=== PATIENT | male | born 1985 | race Caucasian/White ===

== ENCOUNTER 2020-11-23 11:22 | Emergency (ER) | payer OTHER ==
[2020-11-23] MEDS ORDERED: KETOROLAC 15 MG/ML 1 ML VIAL IM STA (11:47)
--- NOTE | 2020-11-23 12:11 | XR ---
EXAMINATION TYPE: PA chest and left rib series, 5 views DATE OF EXAM: 11/23/2020 Comparison: None Clinical History: 35-year-old male pain after trip and fall injury Findings: Heart normal size. Aorta and pulmonary vasculature within normal limits. Some strandy atelectasis in the left lower lung. No consolidation or pleural effusion. No pneumothorax. Very subtle cortical irre gularity involving the left anterolateral sixth and seventh ribs on the oblique view. No displaced ri b fractures seen. Impression: Subtle cortical irregularity involving the left anterolateral sixth and seventh ribs on the oblique v iew. If there is point tenderness here, subtle nondisplaced rib fractures are not excluded. No acute cardiopulmonary process.
--- NOTE | 2020-11-23 12:17 | ED ---
Fall HPI - General Chief Complaint: Fall Stated Complaint: Fall, L side pain Time Seen by Provider: 11/23/20 11:35 Source: patient, RN notes reviewed Mode of arrival: ambulatory Limitations: no limitations - History of Present Illness Initial Comments: 35-year-old male presents emergency Department with chief complaint of left- sided rib pain. Patient states that he was playing softball states that he fell with his arm tucked in. Patient went of left-sided rib pain states it's worse with any movement and deep inspiration. No head injury no loss conscious no other complaints. - Related Data Previous Rx's Medication Instructions Recorded Ibuprofen [Motrin] 800 mg PO Q6HR #30 tab 11/23/20 Allergies Allergy/AdvReac Type Severity Reaction Status Date / Time promethazine Allergy Hallucinati Verified 11/23/20 11:33 ons Review of Systems ROS Statement: Those systems with pertinent positive or pertinent negative responses have been documented in the HPI. ROS Other: All systems not noted in ROS Statement are negative. General Exam Limitations: no limitations General appearance: alert, in no apparent distress Head exam: Present: atraumatic, normocephalic, normal inspection Neck exam: Present: normal inspection, full ROM. Absent: tenderness, meningismus, lymphadenopathy Respiratory exam: Present: normal lung sounds bilaterally, chest wall tenderness (Moderate left lateral posterior rib tenderness). Absent: respiratory distress, wheezes, rales, rhonchi, stridor Cardiovascular Exam: Present: regular rate, normal rhythm, normal heart sounds. Absent: systolic murmur, diastolic murmur, rubs, gallop, clicks GI/Abdominal exam: Present: soft, normal bowel sounds. Absent: distended, tenderness, guarding, rebound, rigid Course Vital Signs 11/23/20 11:30 Temperature 98.3 F Pulse Rate 60 Respiratory 18 Rate Blood Pressure 124/75 O2 Sat by Pulse 97 Oximetry Medical Decision Making - Medical Decision Making X-ray shows evidence of seventh rib fracture of the left no pneumothorax. Patient we discharged stable condition with ibuprofen. Disposition Clinical Impression: Fall, Left rib fracture Disposition: HOME SELF-CARE Condition: Stable Instructions (If sedation given, give patient instructions): Rib Fracture (ED) Additional Instructions: Please return to the Emergency Department if symptoms worsen or any other concerns. Prescriptions: Ibuprofen [Motrin] 800 mg PO Q6HR #30 tab Is patient prescribed a controlled substance at d/c from ED?: No Referrals: Nonstaff,Physician [Primary Care Provider] - 1-2 days Time of Disposition: 12:17
[2020-11-23 12:52] VITALS: BP 120/64; PULSE 76; RESP 16; TEMP 98
== END 2020-11-23 12:52 | disposition home or self-care (01) ==
LOC: EC 11:22
DX: S22.32XA Fracture of one rib, left side, initial encounter for closed fracture (principal); W18.30XA Fall on same level, unspecified, initial encounter; Y93.64 Activity, baseball
CPT/HCPCS: 71101; 99284; 96372; J1885

== ENCOUNTER 2021-12-01 14:15 | Inpatient (IN) | payer OTHER ==
[2021-12-01] MEDS ORDERED: SODIUM CHLORIDE 0.9% 1,000 ML IV STA (14:45)
--- NOTE | 2021-12-01 15:05 | XR ---
EXAMINATION TYPE: XR chest 2V DATE OF EXAM: 12/01/2021 COMPARISON: 11/23/2020 TECHNIQUE: PA and lateral views submitted. HISTORY: Chest pain FINDINGS: The lungs are clear and there is no pneumothorax, pleural effusion, or focal pneumonia. Heart size normal. No overt failure. Subtle fractures noted involving the lower lateral left rib cage as well se en by standard chest x-ray. IMPRESSION: 1. No acute process. Subtle recent rib fractures not as well seen by standard two view chest xray rel ative to rib series.
[2021-12-01 15:07] LABS: Basophils % (A) 0 %; Eosinophils % (A) 0 %; HCT 47.1 % (39.0-53.0); HGB 15.4 gm/dL (13.0-17.5); Lymphocytes # (A) 1.9 k/uL (1.0-4.8); Lymphocytes % (A) 27 %; MCH 30.8 pg (25.0-35.0); MCHC 32.7 g/dL (31.0-37.0); MCV 94.2 fL (80.0-100.0); Mean Platelet Volume 8.2; Monocytes # (A) 0.3 k/uL (0-1.0); Monocytes % (A) 4 %; Neutrophils # (A) 4.7 k/uL (1.3-7.7); Neutrophils % (A) 67 %; Platelet Count 186 k/uL (150-450); RDW 12.6 % (11.5-15.5)
[2021-12-01 15:14] LABS: Partial Thromboplastin Time 25.4 sec (22.0-30.0)
[2021-12-01 15:25] LABS: ALT 32 U/L (4-49); AST 42 U/L (17-59); African American GFR (CKD) >90 (>60 ml/min/1.73 sqM); Albumin 4.9 g/dL (3.5-5.0); Alkaline Phosphatase 56 U/L (38-126); Anion Gap 23 mmol/L; Blood Urea Nitrogen 9 mg/dL (9-20); Calcium 8.5 mg/dL (8.4-10.2); Carbon Dioxide 16 mmol/L (22-30); Chloride 105 mmol/L (98-107); Glucose 102 mg/dL (74-99); Lipase 223 U/L (23-300); Magnesium 1.9 mg/dL (1.6-2.3); Non-African American GFR(CKD) >90 (>60 ml/min/1.73 sqM); Potassium 4.2 mmol/L (3.5-5.1); Sodium 144 mmol/L (137-145); Total Bilirubin 0.5 mg/dL (0.2-1.3); Total Protein 7.7 g/dL (6.3-8.2)
[2021-12-01] MEDS ORDERED: THIAMINE 100 MG/ML 2 ML VIAL IM STA (15:36)
[2021-12-01] MEDS: LORazepam 2 MG/ML INJ IV PRN ×4 (15:58→22:45)
--- NOTE | 2021-12-01 16:02 | ED ---
General Adult HPI - General Chief complaint: Chest Pain Stated complaint: chest pain Time Seen by Provider: 12/01/21 14:45 Source: patient, RN notes reviewed, old records reviewed Mode of arrival: EMS Limitations: no limitations - History of Present Illness Initial comments: 36-year-old male history of alcohol abuse presenting from [place] with nate pected withdrawal seizure. Patient is a very heavy drinker. He last drank about 6 hours prior. He was being evaluated at [place] for rehabilitation when he had a syncopal versus seizure episode. He states he has history of previous alcohol withdrawal seizures. - Related Data Previous Rx's Medication Instructions Recorded Ibuprofen [Motrin] 800 mg PO Q6HR #30 tab 11/23/20 Allergies Allergy/AdvReac Type Severity Reaction Status Date / Time promethazine Allergy Hallucinati Verified 12/01/21 14:29 ons Review of Systems ROS Statement: Those systems with pertinent positive or pertinent negative responses have been documented in the HPI. ROS Other: All systems not noted in ROS Statement are negative. Past Medical History Past Medical History: Seizure Disorder Additional Past Medical History / Comment(s): paracarditis Past Surgical History: No Surgical Hx Reported Smoking Status: Current every day smoker Past Alcohol Use History: Daily, Heavy Past Drug Use History: Cocaine Course Vital Signs 12/01/21 12/01/21 12/01/21 14:23 15:05 16:00 Temperature 99.1 F Pulse Rate 119 H 108 H 108 H Respiratory 18 18 16 Rate Blood Pressure 147/111 126/92 125/106 O2 Sat by Pulse 96 97 97 Oximetry EKG Findings - EKG Comments: EKG Findings:: EKG: Sinus tachycardia incomplete right bundle-branch block, rate of 113, AK interval 168, QRS duration 112, QTC 383 Medical Decision Making - Medical Decision Making 36-year-old male with alcohol withdrawal seizure. Patient placed on ativan according to CIWA, laboratory studies obtained, CO2 of 60 likely related to seizure. Alcohol level [address] Cooney for alcohol withdrawal seizure and alcohol intoxication. - Lab Data Result diagrams: 12/01/21 14:45 12/01/21 14:45 Lab Results 12/01/21 12/01/21 12/01/21 Range/Units 14:45 14:45 14:45 WBC 7.0 (3.8-10.6) k/uL RBC 5.00 (4.30-5.90) m/uL Hgb 15.4 (13.0-17.5) gm/dL Hct 47.1 (39.0-53.0) % MCV 94.2 (80.0-100.0) fL MCH 30.8 (25.0-35.0) pg MCHC 32.7 (31.0-37.0) g/dL RDW 12.6 (11.5-15.5) % Plt Count 186 (150-450) k/uL MPV 8.2 Neutrophils % 67 % Lymphocytes % 27 % Monocytes % 4 % Eosinophils % 0 % Basophils % 0 % Neutrophils # 4.7 (1.3-7.7) k/uL Lymphocytes # 1.9 (1.0-4.8) k/uL Monocytes # 0.3 (0-1.0) k/uL Eosinophils # 0.0 (0-0.7) k/uL Basophils # 0.0 (0-0.2) k/uL PT 11.0 (9.0-12.0) sec INR 1.0 (<1.2) APTT 25.4 (22.0-30.0) sec Sodium 144 (137-145) mmol/L Potassium 4.2 (3.5-5.1) mmol/L Chloride 105 (98-107) mmol/L Carbon Dioxide 16 L (22-30) mmol/L Anion Gap 23 mmol/L BUN 9 (9-20) mg/dL Creatinine 0.80 (0.66-1.25) mg/dL Est GFR (CKD-EPI)AfAm >90 (>60 ml/min/1.73 sqM) Est GFR (CKD-EPI)NonAf >90 (>60 ml/min/1.73 sqM) Glucose 102 H (74-99) mg/dL Calcium 8.5 (8.4-10.2) mg/dL Magnesium 1.9 (1.6-2.3) mg/dL Total Bilirubin 0.5 (0.2-1.3) mg/dL AST 42 (17-59) U/L ALT 32 (4-49) U/L Alkaline Phosphatase 56 (38-126) U/L Troponin I (0.000-0.034) ng/mL Total Protein 7.7 (6.3-8.2) g/dL Albumin 4.9 (3.5-5.0) g/dL Lipase 223 (23-300) U/L Serum Alcohol mg/dL 12/01/21 12/01/21 Range/Units 14:45 15:53 WBC (3.8-10.6) k/uL RBC (4.30-5.90) m/uL Hgb (13.0-17.5) gm/dL Hct (39.0-53.0) % MCV (80.0-100.0) fL MCH (25.0-35.0) pg MCHC (31.0-37.0) g/dL RDW (11.5-15.5) % Plt Count (150-450) k/uL MPV Neutrophils % % Lymphocytes % % Monocytes % % Eosinophils % % Basophils % % Neutrophils # (1.3-7.7) k/uL Lymphocytes # (1.0-4.8) k/uL Monocytes # (0-1.0) k/uL Eosinophils # (0-0.7) k/uL Basophils # (0-0.2) k/uL PT (9.0-12.0) sec INR (<1.2) APTT (22.0-30.0) sec Sodium (137-145) mmol/L Potassium (3.5-5.1) mmol/L Chloride (98-107) mmol/L Carbon Dioxide (22-30) mmol/L Anion Gap mmol/L BUN (9-20) mg/dL Creatinine (0.66-1.25) mg/dL Est GFR (CKD-EPI)AfAm (>60 ml/min/1.73 sqM) Est GFR (CKD-EPI)NonAf (>60 ml/min/1.73 sqM) Glucose (74-99) mg/dL Calcium (8.4-10.2) mg/dL Magnesium (1.6-2.3) mg/dL Total Bilirubin (0.2-1.3) mg/dL AST (17-59) U/L ALT (4-49) U/L Alkaline Phosphatase (38-126) U/L Troponin I <0.012 (0.000-0.034) ng/mL Total Protein (6.3-8.2) g/dL Albumin (3.5-5.0) g/dL Lipase (23-300) U/L Serum Alcohol 374 H* mg/dL Disposition Clinical Impression: Chest pain, Alcohol abuse, Alcohol withdrawal seizure Disposition: ADMITTED IP TO THIS HOSP Condition: Stable Is patient prescribed a controlled substance at d/c from ED?: No Referrals: None,Stated [Primary Care Provider] - 1-2 days Time of Disposition: 16:12
[2021-12-01] MEDS ORDERED: NALOXONE 0.4 MG/ML 1 ML VIAL IV PRN (16:04)
[2021-12-01] MEDS: SODIUM CHLORIDE 0.9% 1,000 ML IV SCH (16:27)
[2021-12-01] MEDS: THIAMINE 100 MG TAB PO SCH (16:42)
[2021-12-01] MEDS: cloNIDine HCL 0.1 MG TAB PO SCH ×2 (17:27→21:57)
[2021-12-02] MEDS: LORazepam 2 MG/ML INJ IV PRN ×5 (05:00→21:39)
[2021-12-02] MEDS: SODIUM CHLORIDE 0.9% 1,000 ML IV SCH ×2 (06:32→16:44)
--- NOTE | 2021-12-02 07:32 | P.HPIM ---
History of Present Illness This is a pleasant 56 years old male with past medical history of seizure disorder, alcohol abuse, substance abuse with cocaine and smoker. Presents yesterday from [place] for suspected seizure, patient states that he has previous history of alcohol withdrawal seizures. Yesterday he went into [place] hoping to quit drinking alcohol because he still in me he start altered and no other specific reason, while he was there within 2 hours he developed shakiness and he dropped on the floor with urine incontinence but no b owel incontinence or tongue biting, he woke up in the ambulance. His last drink was about 6 hours prior to going to [facility]. He denies headache or dizziness, he says he has someWeakness in his left arm and leg which is improved now. His examination is nonfocal. He denies chest pain or dyspnea. No abdominal pain or vomiting or diarrhea. No urgency or dysuria. No fever. he denies smoking, no illicit drugs but he drinks about 24 beers a day. Patient also feel hopeless and hopeless but denies suicidal or homicidal ideation Of note the patient alcohol level was a still high when he came into the hospital at 374, and he confirms he did not drink any liquor or alcohol on the way to [place] to the hospital.This could be due to rapid drop in his alcohol level which prompted the seizure Vitals stable, patient is mildly tachycardic around 105 but he is a febrile Labs are unremarkable including CBC, INR, BMP Alcohol level was elevated on admission at 374 EKG showing sinus tachycardia [address]-T changes Chest x-ray: No acute process. Subtle fractures involving the left lateral left rib cage In the emergency room patient was started on normal saline, thiamine and CIWA protocol Neurologist has been consulted Review of Systems Review of systems CONSTITUTIONAL: No fever, no malaise, no fatigue. HEENT: No recent visual problems or hearing problems. Denied any sore throat. CARDIOVASCULAR: No orthopnea, PND, no palpitations, no syncope. PULMONARY: No shortness of breath, no cough, no hemoptysis. GASTROINTESTINAL: No diarrhea, no nausea, no vomiting, no abdominal pain. Normoactive bowel sounds. NEUROLOGICAL: No headaches, no weakness, no numbness. HEMATOLOGICAL: Denies any bleeding or petechiae. GENITOURINARY: Denies any burning micturition, frequency, or urgency. MUSCULOSKELETAL/RHEUMATOLOGICAL: Denies any joint pain, swelling, or any muscle pain. ENDOCRINE: Denies any polyuria or polydipsia. Past Medical History Past Medical History: Seizure Disorder Additional Past Medical History / Comment(s): paracarditis Past Surgical History: No Surgical Hx Reported Smoking Status: Current every day smoker Past Alcohol Use History: Daily, Heavy Past Drug Use History: Cocaine Medications and Allergies Home Medications Medication Instructions Recorded Confirmed Type No Known Home Medications 12/01/21 12/01/21 History Allergies Allergy/AdvReac Type Severity Reaction Status Date / Time promethazine Allergy Hallucinati Verified 12/01/21 17:48 ons Physical Exam Vitals: Vital Signs Temp Pulse Pulse Resp BP BP Pulse Ox 12/02/21 01:15 104 H 18 120/68 98 12/01/21 22:48 101 H 16 118/68 98 12/01/21 18:02 138 H 22 127/77 99 12/01/21 16:00 108 H 16 125/106 97 12/01/21 15:05 108 H 18 126/92 97 12/01/21 14:23 99.1 F 119 H 18 147/111 96 Intake and Output 12/01/21 12/01/21 12/02/21 14:59 22:59 06:59 Intake Total 480 Balance 480 Intake: Oral 480 Other: # Voids 2 Weight 86.183 kg GENERAL: The patient is alert and oriented x3, not in any acute distress. Well developed, well nourished. HEENT: Pupils are round and equally reacting to light. EOMI. No scleral icterus. No conjunctival pallor. Normocephalic, atraumatic. No pharyngeal erythema. No thyromegaly. CARDIOVASCULAR: S1 and S2 present. No murmurs, rubs, or gallops. PULMONARY: Chest is clear to auscultation, no wheezing or crackles. ABDOMEN: Soft, nontender, nondistended, normoactive bowel sounds. No palpable organomegaly. MUSCULOSKELETAL: No joint swelling or deformity. EXTREMITIES: No cyanosis, clubbing, or pedal edema. NEUROLOGICAL: Gross neurological examination did not reveal any focal deficits. SKIN: No rashes. no petechiae. Results CBC & Chem 7: 12/01/21 14:45 12/01/21 14:45 Labs: Abnormal Lab Results - Last 24 Hours (Table) 12/01/21 12/01/21 Range/Units 14:45 15:53 Carbon Dioxide 16 L (22-30) mmol/L Glucose 102 H (74-99) mg/dL Serum Alcohol 374 H* mg/dL Assessment and Plan Assessment: alcohol withdrawal seizureseizure possible cody's paralysis related to seizure Alcohol abuse and alcohol withdrawal depression, with no suicidal ideation History of substance abuse with cocaine Plan: This is a pleasant 56 years old male who presents with seizure and alcohol withdrawal Continue with CIWA protocol Thiamine Gentle hydration Seizure precaution Neurology consult psychiatric consult Labs and medication were reviewed.. Continue same treatment. Continue with symptomatic treatment. Resume home medication. Monitor lytes and vitals. DVT and GI prophylaxis. Further recommendations as per clinical course of the patient DVT prophylaxis: Subcutaneous heparin GI Prophylaxis: Pepcid Prognosis is guarded
[2021-12-02] MEDS: HEPARIN SODIUM,PORCINE/PF 5,000 UNIT/0.5 ML SYRINGE SQ SCH ×2 (08:08→21:39)
[2021-12-02] MEDS: THIAMINE 100 MG TAB PO SCH ×2 (08:09→16:36)
[2021-12-02] MEDS: cloNIDine HCL 0.1 MG TAB PO SCH ×3 (08:09→21:38)
[2021-12-02] MEDS ORDERED: FAMOTIDINE 20 MG/2 ML VIAL IV SCH (09:00)
--- NOTE | 2021-12-02 09:47 | HP ---
HISTORY AND PHYSICAL CHIEF COMPLAINT: Seizures. HISTORY OF PRESENT ILLNESS: This is a 36 year old gentleman with a past medical history of pancreatitis, history of alcohol issues, was admitted to [facility], but apparently, the patient had tonic clonic seizures, possibly withdrawal seizures, and the patient was taken to [facility] and was admitted for further evaluation. The patient is slightly jittery. The patient is mildly confused at this time. There is no history of any fever, rigors, or chills. PAST MEDICAL HISTORY: History of seizure disorder, pancreatitis, alcoholism. HOME MEDICATIONS: Ibuprofen. ALLERGIES: Phenothiazine. FAMILY HISTORY: No history of heart disease or strokes in the family. SOCIAL HISTORY: Alcohol abuse, cocaine, smoking. REVIEW OF SYSTEMS: 14-point review of systems negative except as mentioned earlier. PHYSICAL EXAMINATION: VITAL SIGNS: Pulse is 108, blood pressure , respirations 16. HEENT: Conjunctivae normal. NECK: No JVD. CARDIOVASCULAR: S1, S2 muffled. RESPIRATION: Breath sounds diminished at the bases. A few scattered rhonchi. ABDOMEN: Soft, nontender. LEGS: NERVOUS SYSTEM: Diffusely weak and tremors. SKIN: No ulcer. JOINTS: No active deforming arthropathy. LABORATORY DATA: CBC within normal limits. Other labs are noted. Alcohol is 374. ASSESSMENT: 1. Acute tonic-clonic seizures, withdrawal seizures. 2. History of seizure disorder. 3. History of EtOH. 4. History of pancreatitis. 5. Polysubstance abuse. RECOMMENDATION AND DISCUSSION: This 36-year-old gentleman presented with multiple complex medical issues. We will monitor the patient closely. I would recommend Ativan protocol, CIWA protocol. Otherwise, closely follow with Neurology, neuro checks, seizure precautions, alcohol cessation advice. We will initiate clonidine. Prognosis guarded because of multiple complex medical issues. Further recommendations to follow. See orders for further details. MMODL / IJN: [id number] /
[2021-12-02 10:47] LABS: Basophils # (A) 0.05 X 10*3/uL (0.00-0.10); Basophils % (A) 0.7 %; Eosinophils # (A) 0.07 X 10*3/uL (0.04-0.35); HCT 40.2 % (39.6-50.0); HGB 13.6 g/dL (13.0-17.0); Immature Grans, Automated 0.3 %; Lymphocytes # (A) 1.79 X 10*3/uL (0.90-5.00); Lymphocytes % (A) 25.5 %; MCH 30.9 pg (27.0-32.0); MCHC 33.8 g/dL (32.0-37.0); MCV 91.4 fL (80.0-97.0); Mean Platelet Volume 10.8 fL (9.5-12.2); Monocytes # (A) 0.46 X 10*3/uL (0.20-1.00); Monocytes % (A) 6.6 %; NRBC Per 100 WBC 0 /100 WBCS (0.0-0.0); Neutrophils # (A) 4.63 X 10*3/uL (1.80-7.70); Neutrophils % (A) 65.9 %; Platelet Count 147 X 10*3/uL (140-440); WBC 7.02 X 10*3/uL (4.50-10.00)
[2021-12-02 11:10] LABS: African American GFR (CKD) 128.7 (60.0-200.0); Albumin 4.1 g/dL (3.8-4.9); Albumin/Globulin Ratio 1.78 (1.60-3.17); Anion Gap 9.4 mmol/L (10.00-18.00); Blood Urea Nitrogen 9.9 mg/dL (9.0-27.0); Calcium 8.9 mg/dL (8.7-10.3); Carbon Dioxide 24.6 mmol/L (20.0-27.5); Globulin 2.3 g/dL (1.6-3.3); Potassium 4.2 mmol/L (3.5-5.5); Total Bilirubin 0.8 mg/dL (0.30-1.20); Total Protein 6.4 g/dL (6.2-8.2)
--- NOTE | 2021-12-02 12:51 | CT ---
EXAMINATION TYPE: CT brain wo con DATE OF EXAM: 12/02/2021 COMPARISON: None. HISTORY: Seizure. CT DLP: 1178.4 mGycm. Automated Exposure Control for Dose Reduction was Utilized. TECHNIQUE: CT scan of the head is performed without contrast. FINDINGS: There is no acute intracranial hemorrhage, mass effect, or midline shift identified. The ventricles and sulci are within normal limits in size. Galdamez-white matter differentiation is maintai robbi. The globes are intact and the visualized sinuses are clear. IMPRESSION: Unremarkable study.
[2021-12-02] MEDS ORDERED: hydrOXYzine pamoate 25 MG CAP PO PRN (13:32)
--- NOTE | 2021-12-02 13:39 | P.CN ---
Psychiatric Consult - . 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 He has 1 kid. REASON FOR REFERRAL: Psychiatry was consulted for depression HISTORY OF PRESENT ILLNESS: The patient presented to the hospital yesterday from [place]. Patient apparently has a history of severe alcohol abuse. Patient was seen today for psychiatric consultation for depression. Patient currently has a history of withdrawal seizures. His blood alcohol level was 374 on admission. Patient was seen today laying in his bed eating his lunch. He was agreeable to speak to newspaper writer today. He has a soft constricted tone of voice and affect. He states that he is feeling mainly anxious at this time and having some withdrawal symptoms including shakes and also racing heart. He claims that he does have a history of cocaine and alcohol withdrawal and also has had seizures from stopping alcohol 2 times in the past. He states that he was at [place] and apparently had a seizure there before being brought in by EMS to the hospital. He states that he remembers "falling down" last. He states that his last drink was about 24 hours ago. He states that he drinks around 24 cans of beer a day plus some liquor. He states that this has been going on for about 2 years now. He states that his mood is "a bit better" since being in the hospital however relays that it is most likely related to drinking alcohol when he feels depressed. Denying any paranoia, states that his sleep and appetite have been poor.. At this time patient denies any suicidal or homical ideations, intent or plan. Patient denies any auditory, visual hallucinations and denies any paranoia or delusions. Patients admits to using alcohol only, denies any c igarette use. PAST PSYCHIATRIC HISTORY: Patient has a a history of anxiety and alcohol dependence. Patient denies being on any psychiatric medications currently however states that he tried Zoloft when he was younger for anxiety however that did not help him. Patient denies any previous psychiatric hospitalizations. Patient denies any psychiatric outpatient follow-up. Patient denies any history of suicide attempts in the past. Past Medical History: Seizure Disorder Additional Past Medical History / Comment(s): paracarditis ALLERGIES: as per EMR. CHEMICAL DEPENDENCY HISTORY: as per HPI. FAMILY PSYCHIATRIC/SUBSTANCE USE HISTORY: denies SOCIAL HISTORY: Patient was born and raised in [facility]. He states that he completed high school and did some college. He states that he went to group home several years back for destruction of property. He states that he does not have any DUIs on his record. He has one child. 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 He is unemployed. MENTAL STATUS EXAM: General Appearance: Patient appears to have a spann, some tattoos, stated age is alert, directable, and cooperative. Patient appears to have fair hygiene and grooming wearing hospital gown with poor eye contact. Behavior: Patient is calmly lying in bed without any agitated behavior. Speech: Patient's speech is fluent and nonpressured. Constricted, monotone. Mood/Affect: Patient reports their mood is "only when I drink", affect is congruent and constricted Suicidality/Homicidality: Patient denies having any suicidal or homicidal ideation intent or plan. Perceptions: Patient denies any visual hallucinations and denies any auditory hallucinations Though content/process: There is no evidence of any delusional thought content and thought process is linear and goal-directed. Memory and concentration: AOX3, grossly intact for the purposes of this session. 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 -Would recommend the following medication changes/additions: Patient is agreeable to start naltrexone 50 mg daily for cravings of alcohol, Librium 25 mg 3 times a day for alcohol cravings scheduled, this is to be tapered down. Trazodone 50 mg daily at bedtime for insomnia/mood. Vistaril 25 mg 3 times a day when necessary for anxiety. -CIWA protocol with PRN Ativan for alcohol withdrawal. Continue to monitor vital signs. -outreach and education social worker to provide patient with outpatient mental health/psychiatry resources for appropriate follow up upon discharge -Cafe Attendant spoke with patient about substance abuse and the harmful effects on medical and mental health, patient verbally understood and agreed. -Patient states that he wants to return back to [place] once he is discharged from the hospital. -Communicated plan to patient's nurse -Will continue to follow along -Please contact with any questions.
--- NOTE | 2021-12-02 13:43 | P.CNNES ---
History of Present Illness Consult date: 12/02/21 Requesting physician: Cyrus Torres Reason for Consult: Alcohol withdrawal seizure History of Present Illness: Patient is a 36-year-old male came to the hospital by ambulance yesterday at 2:15 PM for a seizure. As per EMS flow sheet, when they arrived at [facility], found patient supine on the floor unresponsive with his hands in the air. Per staff he was checking into rehab when he stated that he was having chest pain. He then passed out and went into the floor from his chair. He has a history of seizure.. During moving to the ambulance, his arms were straight out in front of him and he was still unresponsive in the truck. During transport, patient woke up and became combative and was repeating questions. Patient's vitals were blood pressure 146/107, pulse rate 97 respiration 18 and saturation 97% blood glucose 120 and temperature 99.7. Patient's blood test shows normal CBC, PT/PTT, normal CMP. Troponin negative. Blood alcohol level was 374. Chest x-ray showed no acute process. EKG shows sinus tachycardia. Possible left atrial enlargement. Patient was seen in 477. Patient tells me that he had a seizure 2 years ago, which was also related to alcohol. He states that he has been drinking since age 22. He would drink 1 pint of vodka and 12 beers a day almost daily. In the last 5 years he has been drinking even more heavily, drinking about of pint to fifth of vodka a day and about a case of beer (24). Patient says that he lives with his sister, has 1 child. He denies any tobacco alcohol drugs, sometimes uses marijuana. He states that he was in the middle of check in at [place], when he just fell out and woke up in the ambulance. Denies any tongue bite although he did lose control of urine. Review of Systems All review of systems negative except pertinent positives and negatives mentioned in HPI. Denies any abdominal pain nausea vomiting diarrhea. No visual problems. No fever or chills. Past Medical History Past Medical History: Seizure Disorder Additional Past Medical History / Comment(s): paracarditis Past Surgical History: No Surgical Hx Reported Smoking Status: Current every day smoker Past Alcohol Use History: Daily, Heavy Past Drug Use History: Cocaine - Past Family History Mother Family Medical History: Hypertension Father Family Medical History: Hyperlipidemia Medications and Allergies Home Medications Medication Instructions Recorded Confirmed Type No Known Home Medications 12/01/21 12/01/21 History Allergies Allergy/AdvReac Type Severity Reaction Status Date / Time promethazine Allergy Hallucinati Verified 12/01/21 17:48 ons Physical Examination - Vital Signs Vital Signs: Vital Signs Temp Pulse Pulse Resp BP BP Pulse Ox 12/02/21 08:00 98.4 F 80 146/91 99 12/02/21 01:15 104 H 18 120/68 98 12/01/21 22:48 101 H 16 118/68 98 12/01/21 18:02 138 H 22 127/77 99 12/01/21 16:00 108 H 16 125/106 97 12/01/21 15:05 108 H 18 126/92 97 12/01/21 14:23 99.1 F 119 H 18 147/111 96 Intake and Output 12/01/21 12/02/21 12/02/21 22:59 06:59 14:59 Intake Total 480 Balance 480 Intake: Oral 480 Other: # Voids 2 Patient is a young male, in no acute distress. He has a flat affect. Patient is alert awake oriented to time place and person. Speech and language functions are normal. Patient can name and repeat very well. No aphasia or dysarthria. Attention, concentration and fund of knowledge is adequate. On cranial nerve examination, pupils are equal, round and reacting to light, visual owusu are full on confrontation, with no neglect on double simultaneous stimulation. Extraocular muscles are intact with no nystagmus. Face is symmetr ic, tongue protrudes to the midline. Palatal elevation and sensation normal, hearing and shoulder shrug normal, facial sensation normal. On muscle strength testing, there is no pronator drift and the strength is normal in arms and legs distally and proximally. Deep tendon reflexes are symmetric, hypoactive all over, and plantars downgoing. Sensory to touch is equal with no neglect on double simultaneous stimulation. Cerebellar function showed no ataxia for [id number] testing. No dys diadochokinesia. No ataxia for [id number] testing on either side. Tone and bulk of muscles normal. Gait deferred.. On general examination, there is no carotid bruit or murmur, S1-S2 audible. Ch est is clear on consultation. Abdomen is soft nontender. No organomegaly, bowel sounds present. Peripheral pulses are present. No edema. Results - Laboratory Findings CBC and BMP: 12/02/21 07:19 12/02/21 07:19 Abnormal Lab Findings: Abnormal Labs 12/01/21 12/01/21 14:45 15:53 Carbon Dioxide 16 L Glucose 102 H Serum Alcohol 374 H* Assessment and Plan Assessment: * Seizure, likely due to acute alcohol intoxication. Patient has history of seizure 2 years ago, which was also related to alcoholism. * Chronic heavy alcohol abuse * Tobacco use Plan: * Patient's seizure is provoked due to alcohol intoxication. No need for EEG. * We will check CT had rule out any subdural hematoma. * Watch for DTs. * Continue thiamine, folate, multivitamins. * Patient counseled about abstinence from alcoholism and tobacco use. * Patient informed of [place] state law of no driving unless seizure free for 6 months, climbing ladders, operating dangerous machinery or unsupervised swimming. * No other workup indicated, if CT head comes back normal. * Thank you for the consult. CT head normal. I personally reviewed CT head agree with the findings.
[2021-12-02 14:06] LABS: Amphetamine Screen,Urine Not Detected (NotDetected); Barbiturate Screen,Urine Not Detected (NotDetected); Benzodiazepines Screen,Urine Detected (NotDetected); Cocaine Screen,Urine Not Detected (NotDetected); Methadone Screen, Urine Not Detected (NotDetected); Opiate Screen,Urine Not Detected (NotDetected); Oxycodone Screen, Urine Not Detected (NotDetected); Phencyclidine Screen,Urine Not Detected (NotDetected); Tricyclic Antidepressant,Urine Not Detected (NotDetected); Urn Cannabinoid Scrn Not Detected (NotDetected)
[2021-12-02] MEDS: NALTREXONE HCL 50 MG TAB PO SCH (15:52)
[2021-12-02] MEDS: chlordiazePOXIDE 25 MG CAP PO SCH ×2 (15:52→21:38)
[2021-12-02] MEDS: NICOTINE 14MG/24HR PATCH TRANSDERM SCH (17:51)
[2021-12-02] MEDS: FAMOTIDINE 20 MG TAB PO SCH (21:38)
[2021-12-02] MEDS: traZODone HCL 50 MG TAB PO SCH (21:39)
[2021-12-03] MEDS: LORazepam 2 MG/ML INJ IV PRN ×4 (03:04→21:02)
[2021-12-03] MEDS: NALTREXONE HCL 50 MG TAB PO SCH (08:29)
[2021-12-03] MEDS: THIAMINE 100 MG TAB PO SCH ×2 (08:29→17:10)
[2021-12-03] MEDS: chlordiazePOXIDE 25 MG CAP PO SCH (08:30)
[2021-12-03] MEDS: FAMOTIDINE 20 MG TAB PO SCH ×2 (08:30→21:19)
[2021-12-03] MEDS: HEPARIN SODIUM,PORCINE/PF 5,000 UNIT/0.5 ML SYRINGE SQ SCH ×2 (08:30→21:19)
[2021-12-03] MEDS: cloNIDine HCL 0.1 MG TAB PO SCH ×3 (08:30→21:19)
[2021-12-03] MEDS: NICOTINE 14MG/24HR PATCH TRANSDERM SCH (08:31)
[2021-12-03] MEDS: SODIUM CHLORIDE 0.9% 1,000 ML IV SCH ×2 (08:31→19:25)
--- NOTE | 2021-12-03 09:12 | PN ---
PROGRESS NOTE SUBJECTIVE: This 36-year-old gentleman admitted with significant alcohol intoxication is being closely monitored. At this time, the patient is seen by Neurology and as well as Psychiatry also. No chest pain. No palpitations, but is still tremulous. The patient is on CIWA protocol. OBJECTIVE: VITAL SIGNS: Pulse is 102, blood pressure 142/80, respirations 18. HEENT: Conjunctivae are normal. NECK: No jugular venous distention. CARDIOVASCULAR: S1 and S2 muffled. RESPIRATORY: Breath sounds diminished at the bases. ABDOMEN: Soft. NERVOUS SYSTEM: Diffuse tremors present. LABORATORY DATA: Reviewed. CT of the brain is personally reviewed by me, showed it was unremarkable. ASSESSMENT: 1. Acute tonic-clonic seizures, possibly alcohol withdrawal seizures. 2. Delirium tremens. 3. History of seizure disorder. 4. History of EtOH. 5. History of pancreatitis. 6. Polysubstance abuse. RECOMMENDATIONS: Recommend to continue current . Continue CIWA protocol. Prognosis guarded. Repeat labs. Closely follow with Neurology. Further recommendations to follow. MMODL / IJN: [id number] / MTDD
--- NOTE | 2021-12-03 13:57 | P.PN ---
Progress Note - Text Progress Note Date: 12/03/21 Interval History: Patient was seen today for psychiatric follow-up regarding patient's depression and anxiety, alcohol use. Patient's mother states that patient's ciwa scores are still elevated, he also complained to her seeing "spiders" in the shower earlier today. Patient was seen lying in bed today and was agreeable to speak to content writer. He continues to appear fairly constricted in his affect and states that he is still feeling mildly anxious. He claims that he was able to sleep better last night with the trazodone however did have some awakenings. He once remained with same dose of trazodone. He continues to complain of withdrawal symptoms including mild tremors and anxiety and also visual hallucinations also possibly auditory hallucinations. He claims that he is still actively trying to get into [facility] or [facility] for rehab however states that he does not have a bed at this time. He remains focused on getting help for his alcohol use. He did express anxiety about being discharged too early and not having a place to go. At this time patient denies any suicidal or homical ideations, intent or plan. Patient denies any auditory, visual hallucinations and denies any paranoia or delusions. Patient denies any side effects from the medications and has been compliant with meds. Mental Status Exam: General Appearance: Patient appears to have a spann, some tattoos, stated age is alert, directable, and cooperative. Patient appears to have fair hygiene and grooming wearing hospital gown with improving eye contact. Behavior: Patient is calmly lying in bed without any agitated behavior. Speech: Patient's speech is fluent and nonpressured. Constricted, monotone. Mood/Affect: Patient reports their mood is "a bit better but still anxious", affect is congruent and constricted Suicidality/Homicidality: Patient denies having any suicidal or homicidal ideation intent or plan. Perceptions: Patient claims that he is having both visual and auditory hallucinations related to his alcohol withdrawal. Though content/process: There is no evidence of any delusional thought content and thought process is linear and goal-directed. Focused on remaining sober and discharge planning. 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 -Would recommend the following medication changes/additions: naltrexone 50 mg daily for cravings of alcohol, increase Librium 20 mg 4 times a day for alcohol cravings scheduled, this is to be tapered down. Trazodone 50 mg daily at bedtime for insomnia/mood. Vistaril 25 mg 3 times a day when necessary for anxiety. -CIWA protocol with PRN Ativan for alcohol withdrawal. Continue to monitor vital signs. -fiber optic assembly worker to provide patient with outpatient mental health/psychiatry resources for appropriate follow up upon discharge -Healthcare Consultant spoke with patient about substance abuse and the harmful effects on medical and mental health, patient verbally understood and agreed. -Patient states that he wants to return back to [place] once he is discharged from the hospital. Patient is at very high risk for relapse if he is not directly discharged to a safe enviornment such as rehab. -Spoke with RN and pillowcase cleaner about pts condition and need for more assistance and coordiantion with discharge planning hopefully directly to rehab due to him being high risk. -at this time psychiatry will sign off. -Please contact with any questions.
[2021-12-03 14:12] VITALS: BMI 25.7
[2021-12-03] MEDS: NICOTINE 21MG/24HR PATCH TRANSDERM SCH (14:13)
[2021-12-03] MEDS: NICOTINE GUM (POLACRILEX) 2 MG GUM BUCCAL PRN ×2 (17:10→23:01)
[2021-12-03 21:14] VITALS: RESP 18
[2021-12-03] MEDS: traZODone HCL 50 MG TAB PO SCH (21:19)
[2021-12-04 03:02] VITALS: BP 144/91; PULSE 65; TEMP 98
[2021-12-04] MEDS: LORazepam 2 MG/ML INJ IV PRN (05:59)
--- NOTE | 2021-12-04 06:29 | PN ---
PROGRESS NOTE SUBJECTIVE: This is a 36-year-old gentleman who was admitted with alcohol withdrawal seizures and significant alcoholism, is closely monitored. No chest pain, no palpitations, no significant tremors. PHYSICAL EXAMINATION: VITAL SIGNS: Pulse 79, blood pressure 120/80, respirations 19. HEENT: Conjunctivae normal. NECK: No jugular venous distention CARDIOVASCULAR: S1, S2 muffled. RESPIRATIONS: Diminished at the bases. ABDOMEN: Soft. NERVOUS SYSTEM: Mild diffuse tremors present. LABS: CMP, CBC noted. ASSESSMENT: 1. Acute tonic-clonic seizures, possibly alcohol withdrawal seizures. 2. Delirium tremens, acute. 3. History of seizure disorder. 4. History of EtOH. 5. History of pancreatitis. 6. Polysubstance abuse. RECOMMENDATIONS: Recommend to continue current medications, symptomatic treatment. Otherwise, I would recommend continue with CIWA protocol. Closely follow with Neurology. See orders for further details. Further recommendations to follow. Prognosis guarded. MMODL / IJN: [id number] /
[2021-12-04] MEDS: THIAMINE 100 MG TAB PO SCH (07:49)
[2021-12-04] MEDS: cloNIDine HCL 0.1 MG TAB PO SCH (07:49)
[2021-12-04] MEDS: NALTREXONE HCL 50 MG TAB PO SCH (07:49)
[2021-12-04] MEDS: NICOTINE 21MG/24HR PATCH TRANSDERM SCH (07:49)
[2021-12-04] MEDS: FAMOTIDINE 20 MG TAB PO SCH (07:49)
[2021-12-04] MEDS: HEPARIN SODIUM,PORCINE/PF 5,000 UNIT/0.5 ML SYRINGE SQ SCH (07:50)
--- NOTE | 2021-12-04 09:20 | P.PN ---
Subjective Progress Note Date: 12/03/21 Patient was seen for a follow-up. Patient is laying comfortably in bed. Patient denies any further seizures. No headache, no dizziness. Denies any focal symptoms. Patient wants to go back to [facility]. Objective - Vital Signs Vital signs: Vital Signs Temp 97.9 F 12/03/21 14:00 Pulse 79 12/03/21 14:00 Resp 15 12/03/21 14:00 BP 126/80 12/03/21 14:00 Pulse Ox 98 12/03/21 14:00 FiO2 Intake & Output 12/02/21 12/03/21 12/03/21 18:59 06:59 18:59 Intake Total 900 236 Balance 900 236 Weight 86.183 kg 86.183 kg Intake: Intake, IV Titration 900 Amount Sodium Chloride 0.9% 1, 900 000 ml @ 75 mls/hr IV . [id number] RITA Rx#:[id number] Oral 236 Other: # Voids 4 2 - Exam Patient's mental status, speech and language functions are normal. Muscle strength is normal. Cranial nerves normal. No ataxia. No significant tremors of outstretched hands. - Labs CBC & Chem 7: 12/02/21 07:19 12/02/21 07:19 Assessment and Plan Assessment: * Seizure, likely due to acute alcohol intoxication. Patient has history of seizure 2 years ago, which was also related to alcoholism. * Chronic heavy alcohol abuse * Tobacco use Plan: * Patient's seizure is provoked due to alcohol intoxication. No need for EEG. * CT head normal. I personally reviewed CT head agree with the findings. * Watch for DTs. Patient clinically much improved. * Continue thiamine, folate, multivitamins. * Patient counseled about abstinence from alcoholism and tobacco use. * Patient informed of [place] state law of no driving unless seizure free for 6 months, climbing ladders, operating dangerous machinery or unsupervised swimming. * Neurologically clear.
--- NOTE | 2021-12-05 00:20 | P.PN ---
Subjective Progress Note Date: 12/04/21 Patient was seen for a follow-up. Patient is laying comfortably in bed. Patient denies any further seizures. No headache, no dizziness. Denies any focal symptoms. Patient wants to go back to [facility]. Patient being discharged today. Objective - Vital Signs Vital signs: Vital Signs Temp 98.0 F 12/04/21 01:50 Pulse 65 12/04/21 01:50 Resp 18 12/03/21 19:13 BP 144/91 12/04/21 01:50 Pulse Ox 98 12/04/21 01:50 FiO2 Intake & Output 12/03/21 12/04/21 12/04/21 18:59 06:59 18:59 Intake Total 236 Balance 236 Weight 86.183 kg Intake: Oral 236 Other: # Voids 2 - Exam Patient's mental status, speech and language functions are normal. Muscle strength is normal. Cranial nerves normal. No ataxia. Mild fine tremors of outstretched hands. - Labs CBC & Chem 7: 12/02/21 07:19 12/02/21 07:19 Assessment and Plan Assessment: * Seizure, likely due to acute alcohol intoxication. Patient has history of seizure 2 years ago, which was also related to alcoholism. * Chronic heavy alcohol abuse * Tobacco use Plan: * Patient's seizure is provoked due to alcohol intoxication. No need for EEG. * CT head normal. I personally reviewed CT head agree with the findings. * Watch for DTs. Patient clinically much improved. * Continue thiamine, folate, multivitamins. * Patient counseled about abstinence from alcoholism and tobacco use. * Patient informed of [place] state law of no driving unless seizure free for 6 months, climbing ladders, operating dangerous machinery or unsupervised swimming. * Neurologically clear. We will sign off.
--- NOTE | 2021-12-05 01:56 | DS ---
DISCHARGE SUMMARY FINAL DIAGNOSES: 1. Acute alcoholic seizures. 2. Acute delirium tremens. 3. History of EtOH. 4. History of pancreatitis. DISCHARGE DISPOSITION: The patient will be discharged in stable condition. Guarded prognosis. HISTORY OF PRESENT ILLNESS: This 36-year-old gentleman was admitted with significant alcoholism and associated seizure, treated symptomatically. Dr. Engel saw the patient, Neurology. No chest pain, no palpitations. No fever. PHYSICAL EXAMINATION: VITAL SIGNS: Weight ntd CARDIOVASCULAR: S1, S2 muffled. ABDOMEN: Soft. NERVOUS SYSTEM: No focal deficits. DISCHARGE DISPOSITION: DISCHARGE MEDICATIONS: The patient will be recommended to continue with short course of clonidine, Librium as well as multivitamins and to follow up with [facility]. Follow up with primary physician for continued followup of the above-mentioned medical issues including neurologist as an outpatient. Discussed with the patient, he understands and agrees. Prognosis guarded. MMLAURAL / MAUREEN: [id number] / MTDD
== END 2021-12-04 13:10 | DRG 897 ==
LOC: EC 14:15 → 4SSUR 16:04
PROVIDERS: ADMIT Hospitalist; ATTEND Hospitalist
DX: F10.231 Alcohol dependence with withdrawal delirium (principal); Y90.8 Blood alcohol level of 240 mg/100 ml or more; F10.229 Alcohol dependence with intoxication, unspecified; G40.409 Other generalized epilepsy and epileptic syndromes, not intractable, without status epilepticus; G83.84 Todd's paralysis (postepileptic); F17.210 Nicotine dependence, cigarettes, uncomplicated; Z65.3 Problems related to other legal circumstances; Z56.0 Unemployment, unspecified; I45.10 Unspecified right bundle-branch block; Z28.21 Immunization not carried out because of patient refusal; F10.24 Alcohol dependence with alcohol-induced mood disorder; F14.10 Cocaine abuse, uncomplicated; F41.9 Anxiety disorder, unspecified; Z82.49 Family history of ischemic heart disease and other diseases of the circulatory system; Z86.19 Personal history of other infectious and parasitic diseases
CPT/HCPCS: 36415; 70450; 71046; 80053; 80306; 80320; 83690; 83735; 84484; 85025; 85610; 85730; 93005; 96361; 96374; 99285

== ENCOUNTER 2022-08-27 21:43 | Observation (INO) | payer OTHER ==
[2022-08-27 21:55] LABS: Glucose,Whole Blood 119 mg/dL (70-110)
[2022-08-27] MEDS ORDERED: SODIUM CHLORIDE 0.9% 1,000 ML IV ONE ×2 (21:57)
[2022-08-27 22:13] LABS: Basophils # (A) 0.1 k/uL (0-0.2); Basophils % (A) 1 %; Eosinophils % (A) 0 %; HCT 50.4 % (39.0-53.0); HGB 17.4 gm/dL (13.0-17.5); Lymphocytes % (A) 19 %; MCH 30.5 pg (25.0-35.0); MCHC 34.6 g/dL (31.0-37.0); MCV 88.3 fL (80.0-100.0); Mean Platelet Volume 7.9; Monocytes # (A) 0.6 k/uL (0-1.0); Monocytes % (A) 4 %; Neutrophils # (A) 11.5 k/uL (1.3-7.7); Neutrophils % (A) 75 %; Platelet Count 314 k/uL (150-450); RBC 5.71 m/uL (4.30-5.90); RDW 12.1 % (11.5-15.5); WBC 15.3 k/uL (3.8-10.6)
[2022-08-27 22:28] LABS: INR 0.9 (<1.2); Partial Thromboplastin Time 22.2 sec (22.0-30.0); Prothrombin Time 10.1 sec (9.0-12.0)
[2022-08-27 22:35] LABS: ALT 41 U/L (4-49); AST 56 U/L (17-59); African American GFR (CKD) >90 (>60 ml/min/1.73 sqM); Albumin 5.2 g/dL (3.5-5.0); Alkaline Phosphatase 68 U/L (38-126); Anion Gap 25 mmol/L; Blood Urea Nitrogen 12 mg/dL (9-20); Calcium 8.9 mg/dL (8.4-10.2); Carbon Dioxide 19 mmol/L (22-30); Chloride 93 mmol/L (98-107); Creatine Kinase 262 U/L (55-170); Glucose 139 mg/dL (74-99); Non-African American GFR(CKD) >90 (>60 ml/min/1.73 sqM); Potassium 4.5 mmol/L (3.5-5.1); Sodium 137 mmol/L (137-145); Total Protein 8.9 g/dL (6.3-8.2)
[2022-08-27 22:48] LABS: Appearance,Urine Clear (Clear); Bilirubin,Urine Negative (Negative); Blood,Urine Small (Negative); Color,Urine Light Yellow; Glucose,Urine (UA) Negative (Negative); Ketones,Urine 2+ (Negative); Leukocyte Esterase,Urine Negative (Negative); Mucus,Urine Rare /hpf; Nitrite,Urine Negative (Negative); PH, Urine 5.5 (5.0-8.0); Protein,Urine 2+ (Negative); Specific Gravity,Urine 1.008 (1.001-1.035); Squamous Epithelial Cell,Urine <1 /hpf (0-4); Urobilinogen,Urine <2.0 mg/dL (<2.0); WBC,Urine 1 /hpf (0-5)
[2022-08-27 22:53] LABS: Alcohol 361 mg/dL
[2022-08-27 22:58] LABS: Amphetamine Screen,Urine Not Detected (NotDetected); Barbiturate Screen,Urine Not Detected (NotDetected); Benzodiazepines Screen,Urine Not Detected (NotDetected); Cocaine Screen,Urine Not Detected (NotDetected); Methadone Screen, Urine Not Detected (NotDetected); Opiate Screen,Urine Not Detected (NotDetected); Oxycodone Screen, Urine Not Detected (NotDetected); Phencyclidine Screen,Urine Not Detected (NotDetected); Tricyclic Antidepressant,Urine Not Detected (NotDetected); Urn Cannabinoid Scrn Not Detected (NotDetected)
--- NOTE | 2022-08-27 23:13 | ED ---
Altered Mental Status HPI - General Chief Complaint: Altered Mental Status Stated Complaint: ETOH Time Seen by Provider: 08/27/22 21:50 Source: EMS, RN notes reviewed Mode of arrival: EMS Limitations: no limitations - History of Present Illness Initial Comments: 37-year-old male past history of seizure disorder, daily alcohol abuse and previous cocaine use who presents to the emergency department from [facility]. They state that he was checking into [facility] today when he went unresponsive. They report that he drinks a pint to a liter daily and has a seizure disorder. He denies taking his meds today. The patient's became unresponsive and appeared like he was having an absence seizure. He was given 2 mg of Narcan IM, 0.2 mg of Catapres by mouth and 2 mg of Ativan IM. Patient was transported to the hospital. Patient arrives and admits to seizure disorder. No traumas were noted during the episode. He denies using any other drugs prior to [facility] admission. History is limited because of the patient's current mental status - Related Data Previous Rx's Medication Instructions Recorded Thiamine [Vitamin B-1] 100 mg PO DAILY #30 tab 08/31/22 Allergies Allergy/AdvReac Type Severity Reaction Status Date / Time promethazine Allergy Hallucinati Verified 08/28/22 11:06 ons Review of Systems ROS Statement: Those systems with pertinent positive or pertinent negative responses have been documented in the HPI. ROS Other: All systems not noted in ROS Statement are negative. Past Medical History Past Medical History: Seizure Disorder Additional Past Medical History / Comment(s): paracarditis History of Any Multi-Drug Resistant Organisms: None Reported Past Surgical History: No Surgical Hx Reported Additional Past Surgical History / Comment(s): Oral surgery, EGD Past Anesthesia/Blood Transfusion Reactions: No Reported Reaction Past Psychological History: No Psychological Hx Reported Smoking Status: Current every day smoker Past Alcohol Use History: Daily, Heavy Past Drug Use History: Cocaine - Past Family History Mother Family Medical History: Hypertension Father Family Medical History: Hyperlipidemia General Exam Limitations: altered mental status General appearance: lethargic Head exam: Present: atraumatic, normocephalic, normal inspection Eye exam: Present: normal appearance, PERRL, EOMI. Absent: scleral icterus, conjunctival injection, periorbital swelling ENT exam: Present: normal exam, mucous membranes moist Respiratory exam: Present: normal lung sounds bilaterally. Absent: respiratory distress, wheezes, rales, rhonchi, stridor Cardiovascular Exam: Present: normal rhythm, tachycardia GI/Abdominal exam: Present: soft, normal bowel sounds. Absent: distended, tenderness, guarding, rebound, rigid Neurological exam: Present: altered Psychiatric exam: Present: flat affect Skin exam: Present: warm, dry, intact, normal color. Absent: rash Course Vital Signs 08/27/22 08/27/22 08/27/22 21:45 22:19 22:41 Temperature 98.5 F Pulse Rate 135 H 129 H 109 H Pulse Rate [ Pulse Oximetery ] Respiratory 15 18 Rate Blood Pressure 148/101 143/95 147/93 Blood Pressure [Left Arm Supine] O2 Sat by Pulse 95 92 L Oximetry 08/27/22 08/28/22 08/28/22 23:37 00:26 01:29 Temperature 98.2 F Pulse Rate 92 90 Pulse Rate [ 93 Pulse Oximetery ] Respiratory 18 16 18 Rate Blood Pressure 125/87 130/86 Blood Pressure 138/77 [Left Arm Supine] O2 Sat by Pulse 96 98 95 Oximetry 08/28/22 02:01 Temperature Pulse Rate 94 Pulse Rate [ Pulse Oximetery ] Respiratory 18 Rate Blood Pressure 118/67 Blood Pressure [Left Arm Supine] O2 Sat by Pulse 92 L Oximetry Medical Decision Making - Medical Decision Making Was pt. sent in by a medical professional or institution (BENJAMIN Pimentel, FOOTWEAR PRODUCTION MACHINE OPERATOR, urgent care, hospital, or chcf...) When possible be specific @ -[facility] Did you speak to anyone other than the patient for history (EMS, parent, family, police, friend...)? What history was obtained from this source @ -EMS Did you review nursing and triage notes (agree or disagree)? Why? @ -I reviewed and agree with nursing and triage notes Were old charts reviewed (outside hosp., previous admission, EMS record, old EKG, old radiological studies, urgent care reports/EKG's, chcf records)? Report findings @ -No old charts were reviewed Differential Diagnosis (chest pain, altered mental status, abdominal pain women, abdominal pain men, vaginal bleeding, weakness, fever, dyspnea, syncope, headache, dizziness, GI bleed, back pain, seizure, CVA, palpatations, mental health, musculoskeletal)? @ -Differential Altered Mental Status: Hypoglycemia, DKA, hypercapnia, ETOH, overdose, CO poisoning, trauma, myxedema coma, HTN encephalopathy, infection, encephalitis, psychosis, intercranial hemorrhage, hepatic encephalopathy, meningitis, CVA, this is not meant to be an all-inclusive list EKG interpreted by me (3pts min.). @ -EKG interpreted by me and demonstrates sinus tachycardia X-rays interpreted by me (1pt min.). @ -Yes with no acute intrathoracic process CT interpreted by me (1pt min.). @ -Yes with no acute intracranial process U/S interpreted by me (1pt. min.). @ -None done What testing was considered but not performed or refused? (CT, X-rays, U/S, labs)? Why? @ -None What meds were considered but not given or refused? Why? @ -None Did you discuss the management of the patient with other professionals (professionals i.e. , PA, FOOTWEAR PRODUCTION MACHINE OPERATOR, lab, RT, psych nurse, social services designee, primer assembler, teacher, drug abuse resistance education officer, community case manager)? Give summary @ -Discuss case with the admitting physician Dr. Duque Was smoking cessation discussed for >3mins.? @ -No Was critical care preformed (if so, how long)? @ -No Were there social determinants of health that impacted care today? How? (Homelessness, low income, unemployed, alcoholism, drug addiction, transportation, low edu. Level, literacy, decrease access to med. care, half-way, rehab)? @ -Patient currently attempting to check himself into rehab Was there de-escalation of care discussed even if they declined (Discuss DNR or withdrawal of care, Hospice)? DNR status @ -No What co-morbidities impacted this encounter? (DM, HTN, Smoking, COPD, CAD, Cancer, CVA, ARF, Chemo, Hep., AIDS, mental health diagnosis, sleep apnea, morbid obesity)? @ -Alcohol abuse, seizure disorder Was patient admitted / discharged? Hospital course, mention meds given and route, prescriptions, significant lab abnormalities, going to OR and other pertinent info. @ -Upon arrival patient was placed into trauma 2. He is sedated however does answer questions which appear appropriate. IV is established and laboratory studies are conducted. Patient has lactic of 7.1. Alcohol is 361. Patient is given 2 L saline bolus followed by 130 mL per hour. He is placed on CIWA protocol. Recommended admission and spoke with Dr. Duque agreed to admit the patient. I will place neurology on consult. Patient awaiting a bed on the floor in stable condition Undiagnosed new problem with uncertain prognosis? @ -Yes Drug Therapy requiring intensive monitoring for toxicity (Heparin, Nitro, Insulin, Cardizem)? @ -No Were any procedures done? @ -No Diagnosis/symptom? @ -Possible seizure-like activity, history of seizure disorder, alcohol intoxication, lactic acidosis Acute, or Chronic, or Acute on Chronic? @ -Acute Uncomplicated (without systemic symptoms) or Complicated (systemic symptoms)? @ -Complicated Side effects of treatment? @ -No Exacerbation, Progression, or Severe Exacerbation? @ -No Poses a threat to life or bodily function? How? (Chest pain, USA, SD, pneumonia, PE, COPD, DKA, ARF, appy, cholecystitis, CVA, Diverticulitis, Homicidal, Suicidal, threat to staff... and all critical care pts) @ -No - Lab Data Result diagrams: 08/29/22 07:20 08/29/22 07:20 Lab Results 08/27/22 08/27/22 08/27/22 Range/Units 21:50 21:51 21:51 WBC 15.3 H (3.8-10.6) k/uL RBC 5.71 (4.30-5.90) m/uL Hgb 17.4 (13.0-17.5) gm/dL Hct 50.4 (39.0-53.0) % MCV 88.3 (80.0-100.0) fL MCH 30.5 (25.0-35.0) pg MCHC 34.6 (31.0-37.0) g/dL RDW 12.1 (11.5-15.5) % Plt Count 314 (150-450) k/uL MPV 7.9 Neutrophils % 75 % Lymphocytes % 19 % Monocytes % 4 % Eosinophils % 0 % Basophils % 1 % Neutrophils # 11.5 H (1.3-7.7) k/uL Lymphocytes # 3.0 (1.0-4.8) k/uL Monocytes # 0.6 (0-1.0) k/uL Eosinophils # 0.0 (0-0.7) k/uL Basophils # 0.1 (0-0.2) k/uL PT 10.1 (9.0-12.0) sec INR 0.9 (<1.2) APTT 22.2 (22.0-30.0) sec Sodium (137-145) mmol/L Potassium (3.5-5.1) mmol/L Chloride (98-107) mmol/L Carbon Dioxide (22-30) mmol/L Anion Gap mmol/L BUN (9-20) mg/dL Creatinine (0.66-1.25) mg/dL Est GFR (CKD-EPI)AfAm (>60 ml/min/1.73 sqM) Est GFR (CKD-EPI)NonAf (>60 ml/min/1.73 sqM) Glucose (74-99) mg/dL POC Glucose (mg/dL) 119 H (70-110) mg/dL POC Glu Mandolin Repairer Renetta Owusu Lactic Ac Sepsis Rflx Plasma Lactic Acid Eugenio (0.7-2.0) mmol/L Calcium (8.4-10.2) mg/dL Total Bilirubin (0.2-1.3) mg/dL AST (17-59) U/L ALT (4-49) U/L Alkaline Phosphatase (38-126) U/L Creatine Kinase (55-170) U/L Troponin I (0.000-0.034) ng/mL Total Protein (6.3-8.2) g/dL Albumin (3.5-5.0) g/dL Vitamin B12 Folate (4.40-31.00) ng/mL TSH (0.465-4.680) mIU/L Urine Color Urine Appearance (Clear) Urine pH (5.0-8.0) Ur Specific [place] (1.001-1.035) Urine Protein (Negative) Urine Glucose (UA) (Negative) Urine Ketones (Negative) Urine Blood (Negative) Urine Nitrite (Negative) Urine Bilirubin (Negative) Urine Urobilinogen (<2.0) mg/dL Ur Leukocyte Esterase (Negative) Urine WBC (0-5) /hpf Ur Squamous Epith Cells (0-4) /hpf Urine Mucus (None) /hpf Urine Opiates Screen (NotDetected) Ur Oxycodone Screen (NotDetected) Urine Methadone Screen (NotDetected) Ur Propoxyphene Screen (NotDetected) Ur Barbiturates Screen (NotDetected) U Tricyclic Antidepress (NotDetected) Ur Phencyclidine Scrn (NotDetected) Ur Amphetamines Screen (NotDetected) U Methamphetamines Scrn (NotDetected) U Benzodiazepines Scrn (NotDetected) Urine Cocaine Screen (NotDetected) U Marijuana (THC) Screen (NotDetected) Serum Alcohol mg/dL 08/27/22 08/27/22 08/27/22 Range/Units 21:51 21:51 21:51 WBC (3.8-10.6) k/uL RBC (4.30-5.90) m/uL Hgb (13.0-17.5) gm/dL Hct (39.0-53.0) % MCV (80.0-100.0) fL MCH (25.0-35.0) pg MCHC (31.0-37.0) g/dL RDW (11.5-15.5) % Plt Count (150-450) k/uL MPV Neutrophils % % Lymphocytes % % Monocytes % % Eosinophils % % Basophils % % Neutrophils # (1.3-7.7) k/uL Lymphocytes # (1.0-4.8) k/uL Monocytes # (0-1.0) k/uL Eosinophils # (0-0.7) k/uL Basophils # (0-0.2) k/uL PT (9.0-12.0) sec INR (<1.2) APTT (22.0-30.0) sec Sodium 137 (137-145) mmol/L Potassium 4.5 (3.5-5.1) mmol/L Chloride 93 L (98-107) mmol/L Carbon Dioxide 19 L (22-30) mmol/L Anion Gap 25 mmol/L BUN 12 (9-20) mg/dL Creatinine 0.80 (0.66-1.25) mg/dL Est GFR (CKD-EPI)AfAm >90 (>60 ml/min/1.73 sqM) Est GFR (CKD-EPI)NonAf >90 (>60 ml/min/1.73 sqM) Glucose 139 H (74-99) mg/dL POC Glucose (mg/dL) (70-110) mg/dL POC Glu Mandolin Repairer ID Lactic Ac Sepsis Rflx Plasma Lactic Acid Eugenio 7.1 H* (0.7-2.0) mmol/L Calcium 8.9 (8.4-10.2) mg/dL Total Bilirubin 1.0 (0.2-1.3) mg/dL AST 56 (17-59) U/L ALT 41 (4-49) U/L Alkaline Phosphatase 68 (38-126) U/L Creatine Kinase 262 H (55-170) U/L Troponin I <0.012 (0.000-0.034) ng/mL Total Protein 8.9 H (6.3-8.2) g/dL Albumin 5.2 H (3.5-5.0) g/dL Vitamin B12 Folate (4.40-31.00) ng/mL TSH (0.465-4.680) mIU/L Urine Color Urine Appearance (Clear) Urine pH (5.0-8.0) Ur Specific [place] (1.001-1.035) Urine Protein (Negative) Urine Glucose (UA) (Negative) Urine Ketones (Negative) Urine Blood (Negative) Urine Nitrite (Negative) Urine Bilirubin (Negative) Urine Urobilinogen (<2.0) mg/dL Ur Leukocyte Esterase (Negative) Urine WBC (0-5) /hpf Ur Squamous Epith Cells (0-4) /hpf Urine Mucus (None) /hpf Urine Opiates Screen (NotDetected) Ur Oxycodone Screen (NotDetected) Urine Methadone Screen (NotDetected) Ur Propoxyphene Screen (NotDetected) Ur Barbiturates Screen (NotDetected) U Tricyclic Antidepress (NotDetected) Ur Phencyclidine Scrn (NotDetected) Ur Amphetamines Screen (NotDetected) U Methamphetamines Scrn (NotDetected) U Benzodiazepines Scrn (NotDetected) Urine Cocaine Screen (NotDetected) U Marijuana (THC) Screen (NotDetected) Serum Alcohol 361 H* mg/dL 08/27/22 08/27/22 08/28/22 Range/Units 22:21 22:54 01:10 WBC (3.8-10.6) k/uL RBC (4.30-5.90) m/uL Hgb (13.0-17.5) gm/dL Hct (39.0-53.0) % MCV (80.0-100.0) fL MCH (25.0-35.0) pg MCHC (31.0-37.0) g/dL RDW (11.5-15.5) % Plt Count (150-450) k/uL MPV Neutrophils % % Lymphocytes % % Monocytes % % Eosinophils % % Basophils % % Neutrophils # (1.3-7.7) k/uL Lymphocytes # (1.0-4.8) k/uL Monocytes # (0-1.0) k/uL Eosinophils # (0-0.7) k/uL Basophils # (0-0.2) k/uL PT (9.0-12.0) sec INR (<1.2) APTT (22.0-30.0) sec Sodium (137-145) mmol/L Potassium (3.5-5.1) mmol/L Chloride (98-107) mmol/L Carbon Dioxide (22-30) mmol/L Anion Gap mmol/L BUN (9-20) mg/dL Creatinine (0.66-1.25) mg/dL Est GFR (CKD-EPI)AfAm (>60 ml/min/1.73 sqM) Est GFR (CKD-EPI)NonAf (>60 ml/min/1.73 sqM) Glucose (74-99) mg/dL POC Glucose (mg/dL) (70-110) mg/dL POC Glu Mandolin Repairer ID Lactic Ac Sepsis Rflx Y Plasma Lactic Acid Eugenio 4.0 H* (0.7-2.0) mmol/L Calcium (8.4-10.2) mg/dL Total Bilirubin (0.2-1.3) mg/dL AST (17-59) U/L ALT (4-49) U/L Alkaline Phosphatase (38-126) U/L Creatine Kinase (55-170) U/L Troponin I (0.000-0.034) ng/mL Total Protein (6.3-8.2) g/dL Albumin (3.5-5.0) g/dL Vitamin B12 Folate (4.40-31.00) ng/mL TSH (0.465-4.680) mIU/L Urine Color Light Yellow Urine Appearance Clear (Clear) Urine pH 5.5 (5.0-8.0) Ur Specific [place] 1.008 (1.001-1.035) Urine Protein 2+ H (Negative) Urine Glucose (UA) Negative (Negative) Urine Ketones 2+ H (Negative) Urine Blood Small H (Negative) Urine Nitrite Negative (Negative) Urine Bilirubin Negative (Negative) Urine Urobilinogen <2.0 (<2.0) mg/dL Ur Leukocyte Esterase Negative (Negative) Urine WBC 1 (0-5) /hpf Ur Squamous Epith Cells <1 (0-4) /hpf Urine Mucus Rare H (None) /hpf Urine Opiates Screen Not Detected (NotDetected) Ur Oxycodone Screen Not Detected (NotDetected) Urine Methadone Screen Not Detected (NotDetected) Ur Propoxyphene Screen Not Detected (NotDetected) Ur Barbiturates Screen Not Detected (NotDetected) U Tricyclic Antidepress Not Detected (NotDetected) Ur Phencyclidine Scrn Not Detected (NotDetected) Ur Amphetamines Screen Not Detected (NotDetected) U Methamphetamines Scrn Not Detected (NotDetected) U Benzodiazepines Scrn Not Detected (NotDetected) Urine Cocaine Screen Not Detected (NotDetected) U Marijuana (THC) Screen Not Detected (NotDetected) Serum Alcohol mg/dL 08/28/22 08/28/22 08/28/22 Range/Units 01:35 04:02 04:28 WBC (3.8-10.6) k/uL RBC (4.30-5.90) m/uL Hgb (13.0-17.5) gm/dL Hct (39.0-53.0) % MCV (80.0-100.0) fL MCH (25.0-35.0) pg MCHC (31.0-37.0) g/dL RDW (11.5-15.5) % Plt Count (150-450) k/uL MPV Neutrophils % % Lymphocytes % % Monocytes % % Eosinophils % % Basophils % % Neutrophils # (1.3-7.7) k/uL Lymphocytes # (1.0-4.8) k/uL Monocytes # (0-1.0) k/uL Eosinophils # (0-0.7) k/uL Basophils # (0-0.2) k/uL PT (9.0-12.0) sec INR (<1.2) APTT (22.0-30.0) sec Sodium (137-145) mmol/L Potassium (3.5-5.1) mmol/L Chloride (98-107) mmol/L Carbon Dioxide (22-30) mmol/L Anion Gap mmol/L BUN (9-20) mg/dL Creatinine (0.66-1.25) mg/dL Est GFR (CKD-EPI)AfAm (>60 ml/min/1.73 sqM) Est GFR (CKD-EPI)NonAf (>60 ml/min/1.73 sqM) Glucose (74-99) mg/dL POC Glucose (mg/dL) (70-110) mg/dL POC Glu Mandolin Repairer ID Lactic Ac Sepsis Rflx Y Y Plasma Lactic Acid Eugenio 2.9 H* (0.7-2.0) mmol/L Calcium (8.4-10.2) mg/dL Total Bilirubin (0.2-1.3) mg/dL AST (17-59) U/L ALT (4-49) U/L Alkaline Phosphatase (38-126) U/L Creatine Kinase (55-170) U/L Troponin I (0.000-0.034) ng/mL Total Protein (6.3-8.2) g/dL Albumin (3.5-5.0) g/dL Vitamin B12 Folate (4.40-31.00) ng/mL TSH (0.465-4.680) mIU/L Urine Color Urine Appearance (Clear) Urine pH (5.0-8.0) Ur Specific [place] (1.001-1.035) Urine Protein (Negative) Urine Glucose (UA) (Negative) Urine Ketones (Negative) Urine Blood (Negative) Urine Nitrite (Negative) Urine Bilirubin (Negative) Urine Urobilinogen (<2.0) mg/dL Ur Leukocyte Esterase (Negative) Urine WBC (0-5) /hpf Ur Squamous Epith Cells (0-4) /hpf Urine Mucus (None) /hpf Urine Opiates Screen (NotDetected) Ur Oxycodone Screen (NotDetected) Urine Methadone Screen (NotDetected) Ur Propoxyphene Screen (NotDetected) Ur Barbiturates Screen (NotDetected) U Tricyclic Antidepress (NotDetected) Ur Phencyclidine Scrn (NotDetected) Ur Amphetamines Screen (NotDetected) U Methamphetamines Scrn (NotDetected) U Benzodiazepines Scrn (NotDetected) Urine Cocaine Screen (NotDetected) U Marijuana (THC) Screen (NotDetected) Serum Alcohol mg/dL 08/28/22 08/28/22 08/28/22 Range/Units 08:05 08:41 10:00 WBC (3.8-10.6) k/uL RBC (4.30-5.90) m/uL Hgb (13.0-17.5) gm/dL Hct (39.0-53.0) % MCV (80.0-100.0) fL MCH (25.0-35.0) pg MCHC (31.0-37.0) g/dL RDW (11.5-15.5) % Plt Count (150-450) k/uL MPV Neutrophils % % Lymphocytes % % Monocytes % % Eosinophils % % Basophils % % Neutrophils # (1.3-7.7) k/uL Lymphocytes # (1.0-4.8) k/uL Monocytes # (0-1.0) k/uL Eosinophils # (0-0.7) k/uL Basophils # (0-0.2) k/uL PT (9.0-12.0) sec INR (<1.2) APTT (22.0-30.0) sec Sodium (137-145) mmol/L Potassium (3.5-5.1) mmol/L Chloride (98-107) mmol/L Carbon Dioxide (22-30) mmol/L Anion Gap mmol/L BUN (9-20) mg/dL Creatinine (0.66-1.25) mg/dL Est GFR (CKD-EPI)AfAm (>60 ml/min/1.73 sqM) Est GFR (CKD-EPI)NonAf (>60 ml/min/1.73 sqM) Glucose (74-99) mg/dL POC Glucose (mg/dL) (70-110) mg/dL POC Glu Mandolin Repairer ID Lactic Ac Sepsis Rflx Y Plasma Lactic Acid Eugenio 2.3 H* (0.7-2.0) mmol/L Calcium (8.4-10.2) mg/dL Total Bilirubin (0.2-1.3) mg/dL AST (17-59) U/L ALT (4-49) U/L Alkaline Phosphatase (38-126) U/L Creatine Kinase (55-170) U/L Troponin I (0.000-0.034) ng/mL Total Protein (6.3-8.2) g/dL Albumin (3.5-5.0) g/dL Vitamin B12 Cancelled Folate (4.40-31.00) ng/mL TSH 3.560 (0.465-4.680) mIU/L Urine Color Urine Appearance (Clear) Urine pH (5.0-8.0) Ur Specific [place] (1.001-1.035) Urine Protein (Negative) Urine Glucose (UA) (Negative) Urine Ketones (Negative) Urine Blood (Negative) Urine Nitrite (Negative) Urine Bilirubin (Negative) Urine Urobilinogen (<2.0) mg/dL Ur Leukocyte Esterase (Negative) Urine WBC (0-5) /hpf Ur Squamous Epith Cells (0-4) /hpf Urine Mucus (None) /hpf Urine Opiates Screen (NotDetected) Ur Oxycodone Screen (NotDetected) Urine Methadone Screen (NotDetected) Ur Propoxyphene Screen (NotDetected) Ur Barbiturates Screen (NotDetected) U Tricyclic Antidepress (NotDetected) Ur Phencyclidine Scrn (NotDetected) Ur Amphetamines Screen (NotDetected) U Methamphetamines Scrn (NotDetected) U Benzodiazepines Scrn (NotDetected) Urine Cocaine Screen (NotDetected) U Marijuana (THC) Screen (NotDetected) Serum Alcohol mg/dL 08/28/22 08/28/22 08/28/22 Range/Units 10:48 11:21 14:30 WBC (3.8-10.6) k/uL RBC (4.30-5.90) m/uL Hgb (13.0-17.5) gm/dL Hct (39.0-53.0) % MCV (80.0-100.0) fL MCH (25.0-35.0) pg MCHC (31.0-37.0) g/dL RDW (11.5-15.5) % Plt Count (150-450) k/uL MPV Neutrophils % % Lymphocytes % % Monocytes % % Eosinophils % % Basophils % % Neutrophils # (1.3-7.7) k/uL Lymphocytes # (1.0-4.8) k/uL Monocytes # (0-1.0) k/uL Eosinophils # (0-0.7) k/uL Basophils # (0-0.2) k/uL PT (9.0-12.0) sec INR (<1.2) APTT (22.0-30.0) sec Sodium (137-145) mmol/L Potassium (3.5-5.1) mmol/L Chloride (98-107) mmol/L Carbon Dioxide (22-30) mmol/L Anion Gap mmol/L BUN (9-20) mg/dL Creatinine (0.66-1.25) mg/dL Est GFR (CKD-EPI)AfAm (>60 ml/min/1.73 sqM) Est GFR (CKD-EPI)NonAf (>60 ml/min/1.73 sqM) Glucose (74-99) mg/dL POC Glucose (mg/dL) (70-110) mg/dL POC Glu Mandolin Repairer ID Lactic Ac Sepsis Rflx Y Plasma Lactic Acid Eugenio 2.3 H* 1.0 (0.7-2.0) mmol/L Calcium (8.4-10.2) mg/dL Total Bilirubin (0.2-1.3) mg/dL AST (17-59) U/L ALT (4-49) U/L Alkaline Phosphatase (38-126) U/L Creatine Kinase (55-170) U/L Troponin I (0.000-0.034) ng/mL Total Protein (6.3-8.2) g/dL Albumin (3.5-5.0) g/dL Vitamin B12 Folate (4.40-31.00) ng/mL TSH (0.465-4.680) mIU/L Urine Color Urine Appearance (Clear) Urine pH (5.0-8.0) Ur Specific [place] (1.001-1.035) Urine Protein (Negative) Urine Glucose (UA) (Negative) Urine Ketones (Negative) Urine Blood (Negative) Urine Nitrite (Negative) Urine Bilirubin (Negative) Urine Urobilinogen (<2.0) mg/dL Ur Leukocyte Esterase (Negative) Urine WBC (0-5) /hpf Ur Squamous Epith Cells (0-4) /hpf Urine Mucus (None) /hpf Urine Opiates Screen (NotDetected) Ur Oxycodone Screen (NotDetected) Urine Methadone Screen (NotDetected) Ur Propoxyphene Screen (NotDetected) Ur Barbiturates Screen (NotDetected) U Tricyclic Antidepress (NotDetected) Ur Phencyclidine Scrn (NotDetected) Ur Amphetamines Screen (NotDetected) U Methamphetamines Scrn (NotDetected) U Benzodiazepines Scrn (NotDetected) Urine Cocaine Screen (NotDetected) U Marijuana (THC) Screen (NotDetected) Serum Alcohol mg/dL 08/29/22 08/29/22 08/29/22 Range/Units 07:20 07:20 07:20 WBC 10.3 (3.8-10.6) k/uL RBC 4.58 (4.30-5.90) m/uL Hgb 13.9 D (13.0-17.5) gm/dL Hct 42.1 (39.0-53.0) % MCV 91.9 (80.0-100.0) fL MCH 30.3 (25.0-35.0) pg MCHC 33.0 (31.0-37.0) g/dL RDW 12.1 (11.5-15.5) % Plt Count 175 (150-450) k/uL MPV 8.1 Neutrophils % 80 % Lymphocytes % 14 % Monocytes % 4 % Eosinophils % 1 % Basophils % 0 % Neutrophils # 8.3 H (1.3-7.7) k/uL Lymphocytes # 1.4 (1.0-4.8) k/uL Monocytes # 0.4 (0-1.0) k/uL Eosinophils # 0.2 (0-0.7) k/uL Basophils # 0.0 (0-0.2) k/uL PT (9.0-12.0) sec INR (<1.2) APTT (22.0-30.0) sec Sodium 136 L (137-145) mmol/L Potassium 3.6 (3.5-5.1) mmol/L Chloride 103 (98-107) mmol/L Carbon Dioxide 26 (22-30) mmol/L Anion Gap 7 mmol/L BUN 11 (9-20) mg/dL Creatinine 0.72 (0.66-1.25) mg/dL Est GFR (CKD-EPI)AfAm >90 (>60 ml/min/1.73 sqM) Est GFR (CKD-EPI)NonAf >90 (>60 ml/min/1.73 sqM) Glucose 95 (74-99) mg/dL POC Glucose (mg/dL) (70-110) mg/dL POC Glu Mandolin Repairer ID Lactic Ac Sepsis Rflx Plasma Lactic Acid Eugenio (0.7-2.0) mmol/L Calcium 8.2 L (8.4-10.2) mg/dL Total Bilirubin 1.7 H (0.2-1.3) mg/dL AST 38 (17-59) U/L ALT 30 (4-49) U/L Alkaline Phosphatase 56 (38-126) U/L Creatine Kinase (55-170) U/L Troponin I (0.000-0.034) ng/mL Total Protein 6.0 L (6.3-8.2) g/dL Albumin 3.5 (3.5-5.0) g/dL Vitamin B12 646.0 Folate 13.40 (4.40-31.00) ng/mL TSH (0.465-4.680) mIU/L Urine Color Urine Appearance (Clear) Urine pH (5.0-8.0) Ur Specific [place] (1.001-1.035) Urine Protein (Negative) Urine Glucose (UA) (Negative) Urine Ketones (Negative) Urine Blood (Negative) Urine Nitrite (Negative) Urine Bilirubin (Negative) Urine Urobilinogen (<2.0) mg/dL Ur Leukocyte Esterase (Negative) Urine WBC (0-5) /hpf Ur Squamous Epith Cells (0-4) /hpf Urine Mucus (None) /hpf Urine Opiates Screen (NotDetected) Ur Oxycodone Screen (NotDetected) Urine Methadone Screen (NotDetected) Ur Propoxyphene Screen (NotDetected) Ur Barbiturates Screen (NotDetected) U Tricyclic Antidepress (NotDetected) Ur Phencyclidine Scrn (NotDetected) Ur Amphetamines Screen (NotDetected) U Methamphetamines Scrn (NotDetected) U Benzodiazepines Scrn (NotDetected) Urine Cocaine Screen (NotDetected) U Marijuana (THC) Screen (NotDetected) Serum Alcohol mg/dL - EKG Data EKG Comments: EKG interpreted by myself and demonstrates sinus tachycardia with a rate of 134. QRS 128. QTC of 388. ST elevation in V4. Right axis deviation Disposition Clinical Impression: Alcohol abuse, Seizure Disposition: ADMITTED IP TO THIS [facility] Condition: Stable Is patient prescribed a controlled substance at d/c from ED?: No Time of Disposition: 23:15 Decision to Admit Reason: Admit from EC Decision Date: 08/27/22 Decision Time: 23:15
[2022-08-27] MEDS ORDERED: LORazepam 2 MG/ML INJ IV STA (23:24)
--- NOTE | 2022-08-28 00:07 | XR ---
EXAM: XR Chest, 2 Views CLINICAL HISTORY: ITS.REASON XR Reason: altered mental status TECHNIQUE: Frontal and lateral views of the chest. COMPARISON: 12/01/2021. FINDINGS: Lungs: Unremarkable. No consolidative change. Pleural space: Unremarkable. No pneumothorax. No pleural effusions. Heart: Unremarkable. No cardiomegaly. Mediastinum: Cardiomediastinal silhouette unremarkable. Bones/joints: Gentle dextroscoliosis. IMPRESSION: No active disease, similar to that noted on the previous study.
[2022-08-28] MEDS ORDERED: ACETAMINOPHEN TAB 325 MG TAB PO PRN (00:10)
[2022-08-28] MEDS ORDERED: NALOXONE 0.4 MG/ML 1 ML VIAL IV PRN (00:10)
[2022-08-28] MEDS ORDERED: THIAMINE 100 MG/ML 2 ML VIAL IM STA (00:11)
[2022-08-28] MEDS ORDERED: LORazepam 2 MG/ML INJ IV PRN (00:11)
[2022-08-28] MEDS: SODIUM CHLORIDE 0.9% 1,000 ML IV SCH ×2 (00:43→16:14)
--- NOTE | 2022-08-28 01:06 | CT ---
EXAM: CT Head Without Intravenous Contrast CLINICAL HISTORY: ITS.REASON CT Reason: ams TECHNIQUE: Axial computed tomography images of the head/brain without intravenous contrast. CTDI is 49.2 mGy and DLP is 1217.4 mGy-cm. This CT exam was performed using one or more of the following dose reduction techniques: automated exposure control, adjustment of the mA and/or kV according to patient size, and/or use of iterative reconstruction technique. COMPARISON: 12/02/2021. FINDINGS: Brain: Unremarkable. No hemorrhage. No significant white matter disease. No abnormal extra-axial collection is noted. Midline shift: Midline anatomy is unremarkable. Ventricles: The ventricular system is age appropriate. Bones/joints: Calvarium is within normal limits. No acute fracture. Soft tissues: Unremarkable. Sinuses: Mild chronic ethmoid sinusitis. Mastoid air cells: Visualized mastoid air cells are unremarkable. IMPRESSION: 1. No acute intracranial pathology. 2. If there is concern for etiology such as early acute lacunar infarcts, MRI imaging of the brain with diffusion-weighted sequences should be performed.
[2022-08-28] MEDS: LORazepam 2 MG/ML INJ IV PRN ×6 (02:48→20:25)
--- NOTE | 2022-08-28 13:15 | P.HPIM ---
History of Present Illness H&P Date: 08/28/22 History of present illness; patient is a 37-year-old gentleman with past medical history significant for seizure disorder, alcohol abuse who presented to the ER after being found unresponsive. Patient was sent from [place] where he was checking in for rehab. Patient became unresponsive. Patient received 2 mg of Narcan IM, 0.2 mg of Catapres by mouth and 2 mg of Ativan IM. There was no comp mohsen of jerky movements of arms or limbs. There was no complain of fecal or urine incontinence. Patient admitted to drinking a pint of alcohol daily and was not compliant with seizure medications. Patient was transported to the ER Initial workup in the ER showed white count 15.3, hemoglobin 17.4, sodium 137, potassium 4.5, BUN 12, creatinine 0.80, initial lactic acid level7.1 Urine drug screen was negative. Serum alcohol level was 361 CT head showed no acute intracranial pathology REVIEW OF SYSTEMS: CONSTITUTIONAL: No fever, no malaise, no fatigue. HEENT: No recent visual problems or hearing problems. Denied any sore throat. CARDIOVASCULAR: No chest pain, orthopnea, PND, no palpitations, no syncope. PULMONARY: No shortness of breath, no cough, no hemoptysis. GASTROINTESTINAL: No diarrhea, no nausea, no vomiting, no abdominal pain. NEUROLOGICAL: No headaches, no weakness, no numbness. HEMATOLOGICAL: Denies any bleeding or petechiae. GENITOURINARY: Denies any burning micturition, frequency, or urgency. MUSCULOSKELETAL/RHEUMATOLOGICAL: Denies any joint pain, swelling, or any muscle pain. ENDOCRINE: Denies any polyuria or polydipsia. The rest of the 14-point review of systems is negative. PHYSICAL EXAMINATION: GENERAL: The patient is alert and oriented x3, not in any acute distress. Well developed, well nourished. HEENT: Pupils are round and equally reacting to light. EOMI. No scleral icterus. No conjunctival pallor. Normocephalic, atraumatic. No pharyngeal erythema. No thyromegaly. CARDIOVASCULAR: S1 and S2 present. No murmurs, rubs, or gallops. PULMONARY: Chest is clear to auscultation, no wheezing or crackles. ABDOMEN: Soft, nontender, nondistended, normoactive bowel sounds. No palpable organomegaly. MUSCULOSKELETAL: No joint swelling or deformity. EXTREMITIES: No cyanosis, clubbing, or pedal edema. NEUROLOGICAL: Gross neurological examination did not reveal any focal deficits. SKIN: No rashes. Assessment and plan Seizure Acute metabolic encephalopathy Alcohol abuse Plan; Monitor vital signs Monitor CBC Monitor CMP Seizure precautions Continue IV fluids Continue thiamine and folic acid Continue WA protocol Consult neurology DVT prophylaxis: Past Medical History Past Medical History: Seizure Disorder Additional Past Medical History / Comment(s): paracarditis History of Any Multi-Drug Resistant Organisms: None Reported Past Surgical History: No Surgical Hx Reported Additional Past Surgical History / Comment(s): Oral surgery, EGD Past Anesthesia/Blood Transfusion Reactions: No Reported Reaction Past Psychological History: No Psychological Hx Reported Smoking Status: Current every day smoker Past Alcohol Use History: Daily, Heavy Past Drug Use History: Cocaine - Past Family History Mother Family Medical History: Hypertension Father Family Medical History: Hyperlipidemia Medications and Allergies Home Medications Medication Instructions Recorded Confirmed Type No Known Home Medications 08/28/22 08/28/22 History Allergies Allergy/AdvReac Type Severity Reaction Status Date / Time promethazine Allergy Hallucinati Verified 08/28/22 11:06 ons Physical Exam Vitals: Vital Signs Temp Pulse Pulse Resp BP BP Pulse Ox 08/28/22 09:27 99 08/28/22 04:00 96.5 F L 103 H 20 116/58 98 08/28/22 02:01 94 18 118/67 92 L 08/28/22 01:29 90 18 130/86 95 08/28/22 00:26 98.2 F 93 16 138/77 98 08/27/22 23:37 92 18 125/87 96 08/27/22 22:41 109 H 18 147/93 92 L 08/27/22 22:19 129 H 143/95 08/27/22 21:45 98.5 F 135 H 15 148/101 95 Intake and Output 08/27/22 08/28/22 08/28/22 22:59 06:59 14:59 Output Total 800 Balance -800 Output: Urine 800 Other: # Voids 2 Weight 86.183 kg 86.183 kg Results CBC & Chem 7: 08/27/22 21:51 08/27/22 21:51 Labs: Abnormal Lab Results - Last 24 Hours (Table) 08/27/22 08/27/22 08/27/22 Range/Units 21:50 21:51 21:51 WBC 15.3 H (3.8-10.6) k/uL Neutrophils # 11.5 H (1.3-7.7) k/uL Chloride 93 L (98-107) mmol/L Carbon Dioxide 19 L (22-30) mmol/L Glucose 139 H (74-99) mg/dL POC Glucose (mg/dL) 119 H (70-110) mg/dL Plasma Lactic Acid Eugenio (0.7-2.0) mmol/L Creatine Kinase 262 H (55-170) U/L Total Protein 8.9 H (6.3-8.2) g/dL Albumin 5.2 H (3.5-5.0) g/dL Urine Protein (Negative) Urine Ketones (Negative) Urine Blood (Negative) Urine Mucus (None) /hpf Serum Alcohol 361 H* mg/dL 08/27/22 08/27/22 08/28/22 Range/Units 21:51 22:21 01:10 WBC (3.8-10.6) k/uL Neutrophils # (1.3-7.7) k/uL Chloride (98-107) mmol/L Carbon Dioxide (22-30) mmol/L Glucose (74-99) mg/dL POC Glucose (mg/dL) (70-110) mg/dL Plasma Lactic Acid Eugenio 7.1 H* 4.0 H* (0.7-2.0) mmol/L Creatine Kinase (55-170) U/L Total Protein (6.3-8.2) g/dL Albumin (3.5-5.0) g/dL Urine Protein 2+ H (Negative) Urine Ketones 2+ H (Negative) Urine Blood Small H (Negative) Urine Mucus Rare H (None) /hpf Serum Alcohol mg/dL 08/28/22 08/28/22 Range/Units 04:02 08:05 WBC (3.8-10.6) k/uL Neutrophils # (1.3-7.7) k/uL Chloride (98-107) mmol/L Carbon Dioxide (22-30) mmol/L Glucose (74-99) mg/dL POC Glucose (mg/dL) (70-110) mg/dL Plasma Lactic Acid Eugenio 2.9 H* 2.3 H* (0.7-2.0) mmol/L Creatine Kinase (55-170) U/L Total Protein (6.3-8.2) g/dL Albumin (3.5-5.0) g/dL Urine Protein (Negative) Urine Ketones (Negative) Urine Blood (Negative) Urine Mucus (None) /hpf Serum Alcohol mg/dL Thrombosis Risk Factor Assmnt - Choose All That Apply Any of the Below Risk Factors Present?: No Other Risk Factors: No Other congenital or acquired thrombophilia - If yes, enter type in comment: No Thrombosis Risk Factor Assessment Level: Very Low Risk
--- NOTE | 2022-08-29 00:24 | P.CNNES ---
History of Present Illness Consult date: 08/28/22 Requesting physician: Deidre Griggs Reason for Consult: Suspected seizures History of Present Illness: Patient is a 37-year-old male came to the hospital by ambulance yesterday at 9:43 PM for possible seizure. Patient states that he has been drinking heavily about half a gallon or more per day of vodka for last 6-7 years. He denies any tobacco or drug use. He believes that he drank too much, was on the way to [facility], has just got there when he passed out. He does not remember details afterwards. As per EMS flow sheet, when they arrived at [place] for an overdose. When they arrived on the scene, 2 found patient in stupor, laying on the floor with staff present. The overdose was unknown substance leading to altered mental status. Patient came into the rehab positive for alcohol with reported blood alcohol level of 0.28%. Patient was alert and talking upon arrival to [place] then became unresponsive per staff. Patient has history of alcohol abuse agent was alert and oriented 0, with GCS of 11. Patient normally is alert and oriented 4 with GCS of 15. Patient was stuporous. Patient will localize pain. No other deficits were noted. Patient's vitals at the scene was blood pressure 179/110, which improved to 167/107, pulse rate 149, respiration 12, saturation 92%, blood glucose 121. CT head revealed no acute intracranial pathology. I personally reviewed CT head, agree with the findings. Chest x-ray showed no active cardiopulmonary disease. EKG shows atrial flutter/tachycardia with rapid ventricular response. Blood test shows WBC 15.3 hemoglobin 17.4, normal platel ets. PT/PTT normal, electrolytes are normal, renal functions normal. Lactate was 7.1, hepatic panel normal, CK 262, UA negative, urine drug screen negative, blood alcohol level 361. At present patient states that he is having some hallucinations, seeing some craters/mice on the right side, and he knows it is not real. He believes this is from alcohol withdrawal. Offers no other complaints. Patient denied any tongue bite or loss of control of urine. He claims of having right bundle-branch block and hiatal hernia. Patient has been seen by myself on 12/02/2021 for seizure related to alcohol intoxication. Patient had history of seizure 2 years prior which was also related to alcoholism. Patient has chronic heavy alcohol use and tobacco use. Patient states that he lives with his girlfriend. His last seizure was about 1 year ago. He believes that he had 4 seizures in his lifetime. Review of Systems Constitutional: Denies chills, Denies fever Eyes: denies blurred vision, denies diplopia, denies pain Ears: deny: decreased hearing, ear discharge Ears, nose, mouth and throat: Denies headache, Denies sore throat Cardiovascular: Denies chest pain, Denies shortness of breath Respiratory: Denies cough, Denies excessive sputum Gastrointestinal: Denies abdominal pain, Denies diarrhea, Denies nausea, Denies vomiting Musculoskeletal: Denies myalgias Integumentary: Denies pruritus, Denies rash Neurological: Reports as per HPI, Reports convulsions, Denies loss of vision, Denies spasticity Psychiatric: Reports hallucinations Endocrine: Denies fatigue, Denies weight change Past Medical History Past Medical History: Seizure Disorder Additional Past Medical History / Comment(s): paracarditis History of Any Multi-Drug Resistant Organisms: None Reported Past Surgical History: No Surgical Hx Reported Additional Past Surgical History / Comment(s): Oral surgery, EGD Past Anesthesia/Blood Transfusion Reactions: No Reported Reaction Past Psychological History: No Psychological Hx Reported Smoking Status: Current every day smoker Past Alcohol Use History: Daily, Heavy Past Drug Use History: Cocaine - Past Family History Mother Family Medical History: Hypertension Father Family Medical History: Hyperlipidemia Medications and Allergies Home Medications Medication Instructions Recorded Confirmed Type No Known Home Medications 08/28/22 08/28/22 History Allergies Allergy/AdvReac Type Severity Reaction Status Date / Time promethazine Allergy Hallucinati Verified 08/28/22 11:06 ons Physical Examination - Vital Signs Vital Signs: Vital Signs Temp Pulse Pulse Resp BP BP Pulse Ox 08/28/22 11:40 107 H 17 133/70 96 08/28/22 09:27 99 08/28/22 08:35 98.3 F 96 18 127/71 97 08/28/22 04:00 96.5 F L 103 H 20 116/58 98 08/28/22 02:01 94 18 118/67 92 L 08/28/22 01:29 90 18 130/86 95 08/28/22 00:26 98.2 F 93 16 138/77 98 08/27/22 23:37 92 18 125/87 96 08/27/22 22:41 109 H 18 147/93 92 L 08/27/22 22:19 129 H 143/95 08/27/22 21:45 98.5 F 135 H 15 148/101 95 Intake and Output 08/27/22 08/28/22 08/28/22 22:59 06:59 14:59 Intake Total 1080 Output Total 800 Balance -800 1080 Intake: Oral 1080 Output: Urine 800 Other: # Voids 2 Weight 86.183 kg 86.183 kg Patient is a young male, in no acute distress. Patient is alert awake oriented to time place and person. Patient states it is 08/13/2022 and that he is in [facility] in [facility]. Speech and language functions are normal. Patient can name and repeat very well. No aphasia or dysarthria. Attention, concentration and fund of knowledge is adequate. On cranial nerve examination, pupils are equal, round and reacting to light, visual owusu are full on confrontation, with no neglect on double simultaneous stimulation. Extraocular muscles are intact with no nystagmus. Face is symmetric, tongue protrudes to the midline. Palatal elevation and sensation normal, hearing and shoulder shrug normal, facial sensation normal. On muscle strength testing, there is no pronator drift and the strength is normal in arms and legs distally and proximally. Deep tendon reflexes are symmetric 1+ all over and plantars downgoing. Sensory to touch is equal with no neglect on double simultaneous stimulation. Cerebellar function showed no ataxia for [id number] testing. No dysdiadochokinesia. No ataxia for [id number] testing on either side. Tone and bulk of muscles normal. Gait deferred.. On general examination, there is no carotid bruit or murmur, S1-S2 audible. Chest is clear on consultation. Abdomen is soft nontender. No organomegaly, bowel sounds present. Peripheral pulses are present. No edema. Results - Laboratory Findings CBC and BMP: 08/27/22 21:51 08/27/22 21:51 Abnormal Lab Findings: Abnormal Labs 08/27/22 08/27/22 08/27/22 21:50 21:51 21:51 WBC 15.3 H Neutrophils # 11.5 H Chloride 93 L Carbon Dioxide 19 L Glucose 139 H POC Glucose (mg/dL) 119 H Plasma Lactic Acid Eugenio Creatine Kinase 262 H Total Protein 8.9 H Albumin 5.2 H Urine Protein Urine Ketones Urine Blood Urine Mucus Serum Alcohol 361 H* 08/27/22 08/27/22 08/28/22 21:51 22:21 01:10 WBC Neutrophils # Chloride Carbon Dioxide Glucose POC Glucose (mg/dL) Plasma Lactic Acid Eugenio 7.1 H* 4.0 H* Creatine Kinase Total Protein Albumin Urine Protein 2+ H Urine Ketones 2+ H Urine Blood Small H Urine Mucus Rare H Serum Alcohol 08/28/22 08/28/22 08/28/22 04:02 08:05 10:48 WBC Neutrophils # Chloride Carbon Dioxide Glucose POC Glucose (mg/dL) Plasma Lactic Acid Eugenio 2.9 H* 2.3 H* 2.3 H* Creatine Kinase Total Protein Albumin Urine Protein Urine Ketones Urine Blood Urine Mucus Serum Alcohol Assessment and Plan Assessment: * Seizure, likely due to acute alcohol intoxication. * History of seizures in the past, which were felt to be related to alcoholism. * Hallucinations, likely due to alcohol withdrawal. * Lactic acidosis, likely due to seizure * Chronic heavy alcohol use * Tobacco use Plan: * EEG rule out epileptiform activity * No indication for antiepileptic medication, unless EEG shows epileptiform activity, or if patient has recurrent seizures or unprovoked seizure. * Watch for alcohol withdrawal/DTs. [facility] protocol. * Thiamine, folate, multivitamins * Patient informed of [place] state law of no driving unless seizure free for 6 months, climbing ladders, operate dangerous machinery or unsupervised swimming. * Patient concerned about abstinence from alcohol. * B12, folate, TSH * Dr. Dean Hyatt Will resume neurology service in the morning. Thank you for the consult.
[2022-08-29] MEDS: SODIUM CHLORIDE 0.9% 1,000 ML IV SCH ×4 (01:58→20:22)
[2022-08-29] MEDS: LORazepam 2 MG/ML INJ IV PRN ×8 (03:07→20:22)
[2022-08-29] MEDS: THIAMINE 100 MG TAB PO SCH (07:53)
[2022-08-29 08:01] LABS: Basophils % (A) 0 %; Eosinophils # (A) 0.2 k/uL (0-0.7); Eosinophils % (A) 1 %; HCT 42.1 % (39.0-53.0); Lymphocytes # (A) 1.4 k/uL (1.0-4.8); Lymphocytes % (A) 14 %; MCH 30.3 pg (25.0-35.0); MCV 91.9 fL (80.0-100.0); Mean Platelet Volume 8.1; Monocytes # (A) 0.4 k/uL (0-1.0); Monocytes % (A) 4 %; Neutrophils # (A) 8.3 k/uL (1.3-7.7); Neutrophils % (A) 80 %; Platelet Count 175 k/uL (150-450); RBC 4.58 m/uL (4.30-5.90); RDW 12.1 % (11.5-15.5); WBC 10.3 k/uL (3.8-10.6)
[2022-08-29 08:03] LABS: HGB 13.9 gm/dL (13.0-17.5)
[2022-08-29 08:13] LABS: ALT 30 U/L (4-49); AST 38 U/L (17-59); African American GFR (CKD) >90 (>60 ml/min/1.73 sqM); Albumin 3.5 g/dL (3.5-5.0); Alkaline Phosphatase 56 U/L (38-126); Anion Gap 7 mmol/L; Blood Urea Nitrogen 11 mg/dL (9-20); Calcium 8.2 mg/dL (8.4-10.2); Carbon Dioxide 26 mmol/L (22-30); Chloride 103 mmol/L (98-107); Glucose 95 mg/dL (74-99); Non-African American GFR(CKD) >90 (>60 ml/min/1.73 sqM); Potassium 3.6 mmol/L (3.5-5.1); Sodium 136 mmol/L (137-145); Total Bilirubin 1.7 mg/dL (0.2-1.3)
[2022-08-29] MEDS: CALCIUM CARBONATE 500 MG CHEWABLE PO PRN (12:01)
[2022-08-29] MEDS: ONDANSETRON 4 MG/2 ML VIAL IVP PRN (12:01)
--- NOTE | 2022-08-29 14:03 | P.PN ---
Subjective Progress Note Date: 08/29/22 patient is a 37-year-old gentleman with past medical history significant for seizure disorder, alcohol abuse who presented to the ER after being found unresponsive. Patient was sent from [place] where he was checking in for rehab. Patient became unresponsive. Patient received 2 mg of Narcan IM, 0.2 mg of Catapres by mouth and 2 mg of Ativan IM. There was no complain of jerky movements of arms or limbs. There was no complain of fecal or urine incontinence. Patient admitted to drinking a pint of alcohol daily and was not compliant with seizure medications. Patient was transported to the ER Initial workup in the ER showed white count 15.3, hemoglobin 17.4, sodium 137, potassium 4.5, BUN 12, creatinine 0.80, initial lactic acid level7.1 Urine drug screen was negative. Serum alcohol level was 361 CT head showed no acute intracranial patholog 08/29. Patient seen and examined. Patient still very shaky. Still on CICA protocol REVIEW OF SYSTEMS: CONSTITUTIONAL: No fever, no malaise,. CARDIOVASCULAR: No chest pain, no palpitations, no syncope. PULMONARY: No shortness of breath, no cough, GASTROINTESTINAL: No diarrhea, no nausea, no vomiting, no abdominal pain. NEUROLOGICAL: No headaches, no weakness, PHYSICAL EXAMINATION: GENERAL: The patient is alert and oriented x3, not in any acute distress. Well developed, well nourished. HEENT: Pupils are round and equally reacting to light. EOMI. No scleral icterus. No conjunctival pallor. Normocephalic, atraumatic. No pharyngeal erythema. No thyromegaly. CARDIOVASCULAR: S1 and S2 present. No murmurs, rubs, or gallops. PULMONARY: Chest is clear to auscultation, no wheezing or crackles. ABDOMEN: Soft, nontender, nondistended, normoactive bowel sounds. No palpable organomegaly. MUSCULOSKELETAL: No joint swelling or deformity. EXTREMITIES: No cyanosis, clubbing, or pedal edema. NEUROLOGICAL: Gross neurological examination did not reveal any focal deficits. SKIN: No rashes. Assessment and plan Seizure Acute metabolic encephalopathy Alcohol abuse Monitor vital signs Monitor CBC Monitor CMP Continue telemetry monitoring Continue high dose thiamine and folic acid Continue CIWA protocol Patient informed of [place] state law of no driving unless seizure free for 6 months, climbing ladders, operate dangerous machinery or unsupervised swimming. Neurology evaluated the patient, EEG pending, no need for any antiepileptic drugs at this time Objective - Vital Signs Vital signs: Vital Signs Temp 98.2 F 08/29/22 11:45 Pulse 68 08/29/22 11:45 Resp 18 08/29/22 11:45 BP 136/80 08/29/22 11:45 Pulse Ox 98 08/29/22 11:45 FiO2 Intake & Output 08/28/22 08/29/22 08/29/22 18:59 06:59 18:59 Intake Total 2100 240 465 Output Total 900 Balance 1200 240 465 Intake: Oral 2100 240 465 Output: Urine 900 Other: # Voids 2 1 - Labs CBC & Chem 7: 08/29/22 07:20 08/29/22 07:20 Labs: Abnormal Lab Results - Last 24 Hours (Table) 08/29/22 08/29/22 Range/Units 07:20 07:20 Neutrophils # 8.3 H (1.3-7.7) k/uL Sodium 136 L (137-145) mmol/L Calcium 8.2 L (8.4-10.2) mg/dL Total Bilirubin 1.7 H (0.2-1.3) mg/dL Total Protein 6.0 L (6.3-8.2) g/dL
[2022-08-29] MEDS: NICOTINE 21MG/24HR PATCH TRANSDERM SCH (20:22)
--- NOTE | 2022-08-29 21:23 | EEG ---
ELECTROENCEPHALOGRAM REPORT CLINICAL HISTORY: This is a 37-year-old gentleman with reported seizure likely due to alcohol withdrawal. The EEG is obtained to evaluate for seizure epileptiform activity. RELEVANT MEDICATION: Ativan. EEG TYPE: A routine 21-channel EEG is performed with video using the 10/20 electrode placement system. DESCRIPTION: Wakefulness is obtained. The posterior-dominant rhythm consists of low voltage 12 hertz activity. There was no physiological stage 2 sleep architecture. There is no focal slowing. There is excessive beta activity over bilateral hemisphere. There is moderate amount of myogenic and electrode artifact over bilateral hemisphere. Interictal and ictal is none. ACTIVATION PROCEDURE: Photic stimulation did not evoke a posterior driving response. There is no abnormality during the photic stimulation. Hyperventilation is not performed. CLINICAL INTERPRETATION: This is an abnormal routine EEG. The excessive beta activity is due to medication effect (Ativan). Otherwise, the background is normal and there is no focal slowing, epileptiform discharge, or seizure on the EEG. Clinical correlation is recommended. MMBEBA / ROSALINDAN: [id number] / SHREYAS
[2022-08-30] MEDS: LORazepam 2 MG/ML INJ IV PRN ×7 (02:25→23:13)
[2022-08-30] MEDS: SODIUM CHLORIDE 0.9% 1,000 ML IV SCH ×3 (08:49→15:26)
[2022-08-30] MEDS: THIAMINE 100 MG TAB PO SCH (08:51)
[2022-08-30] MEDS: ONDANSETRON 4 MG/2 ML VIAL IVP PRN (08:51)
[2022-08-30] MEDS: NICOTINE 21MG/24HR PATCH TRANSDERM SCH (08:51)
[2022-08-30] MEDS: CALCIUM CARBONATE 500 MG CHEWABLE PO PRN ×2 (08:51→17:37)
--- NOTE | 2022-08-30 13:37 | P.PN ---
Subjective Progress Note Date: 08/30/22 patient is a 37-year-old gentleman with past medical history significant for seizure disorder, alcohol abuse who presented to the ER after being found unresponsive. Patient was sent from [place] where he was checking in for rehab. Patient became unresponsive. Patient received 2 mg of Narcan IM, 0.2 mg of Catapres by mouth and 2 mg of Ativan IM. There was no complain of jerky movements of arms or limbs. There was no complain of fecal or urine incontinence. Patient admitted to drinking a pint of alcohol daily and was not compliant with seizure medications. Patient was transported to the ER Initial workup in the ER showed white count 15.3, hemoglobin 17.4, sodium 137, potassium 4.5, BUN 12, creatinine 0.80, initial lactic acid level7.1 Urine drug screen was negative. Serum alcohol level was 361 CT head showed no acute intracranial patholog 08/29. Patient seen and examined. Patient still very shaky. Still on CIWA protocol 08/30. Patient seen and examined. States he feels slightly better, still getting IV Ativan. REVIEW OF SYSTEMS: CONSTITUTIONAL: No fever, no malaise,. CARDIOVASCULAR: No chest pain, no palpitations, no syncope. PULMONARY: No shortness of breath, no cough, GASTROINTESTINAL: No diarrhea, no nausea, no vomiting, no abdominal pain. NEUROLOGICAL: No headaches, no weakness, PHYSICAL EXAMINATION: GENERAL: The patient is alert and oriented x3, not in any acute distress. Well developed, well nourished. HEENT: Pupils are round and equally reacting to light. EOMI. No scleral icterus. No conjunctival pallor. Normocephalic, atraumatic. No pharyngeal erythema. No thyromegaly. CARDIOVASCULAR: S1 and S2 present. No murmurs, rubs, or gallops. PULMONARY: Chest is clear to auscultation, no wheezing or crackles. ABDOMEN: Soft, nontender, nondistended, normoactive bowel sounds. No palpable organomegaly. MUSCULOSKELETAL: No joint swelling or deformity. EXTREMITIES: No cyanosis, clubbing, or pedal edema. NEUROLOGICAL: Gross neurological examination did not reveal any focal deficits. SKIN: No rashes. Assessment and plan Seizure Acute metabolic encephalopathy Alcohol abuse Monitor vital signs Monitor CBC Monitor CMP Continue telemetry monitoring Continue high dose thiamine and folic acid Continue CIWA protocol Patient informed of [facility] law of no driving unless seizure free for 6 months, climbing ladders, operate dangerous machinery or unsupervised swimming. Neurology evaluated the patient, EEG did not show any epileptiform activity, no need for any antiepileptic drugs at this time Anticipate discharge in next 24 hours to [place] Objective - Vital Signs Vital signs: Vital Signs Temp 97.7 F 08/30/22 12:00 Pulse 69 08/30/22 12:00 Resp 16 08/30/22 12:00 BP 137/93 08/30/22 12:00 Pulse Ox 99 08/30/22 12:00 FiO2 Intake & Output 08/29/22 08/30/22 08/30/22 18:59 06:59 18:59 Intake Total 1479 240 240 Output Total 600 Balance 1479 -360 240 Intake: Oral 1479 240 240 Output: Urine 600 Other: # Voids 2 1 - Labs CBC & Chem 7: 08/29/22 07:20 08/29/22 07:20
[2022-08-30] MEDS ORDERED: MELATONIN 3 MG TABLET PO PRN (17:48)
[2022-08-31] MEDS: SODIUM CHLORIDE 0.9% 1,000 ML IV SCH ×2 (06:40→13:43)
[2022-08-31] MEDS: NICOTINE 21MG/24HR PATCH TRANSDERM SCH (07:57)
[2022-08-31] MEDS: THIAMINE 100 MG TAB PO SCH (07:58)
[2022-08-31 08:23] VITALS: PULSE 86
--- NOTE | 2022-08-31 11:06 | P.PN ---
Subjective Progress Note Date: 08/31/22 On seeing the patient for the first time during this admission. Patient was seen by Dr. Engel and it seems that the patient seizure was likely due to alcohol intoxication. Patient feels he is doing much better. Denies of any headache, focal weakness. He feels back to baseline. He is determined off ce ssation of alcohol. Objective - Vital Signs Vital signs: Vital Signs Temp 97.6 F 08/31/22 07:16 Pulse 86 08/31/22 07:16 Resp 16 08/31/22 07:16 BP 112/73 08/31/22 07:16 Pulse Ox 98 08/31/22 08:40 FiO2 Intake & Output 08/30/22 08/31/22 08/31/22 18:59 06:59 18:59 Intake Total 898 600 Balance 898 600 Weight 89.5 kg Intake: IV 10 Invasive Line 3 10 Oral 898 590 Other: Voiding Method Toilet Toilet # Voids 2 1 1 - Exam GENERAL: The patient is lying in bed and is not in acute distress. NEUROLOGICAL: Higher mental function: The patient is awake, alert, oriented to self, place and time. Patient is following commands. No aphasia and no neglect. Cranial nerves: The pupils are round, equal and reactive to light. Visual owusu are full to confrontation throughout. Extraocular movement is intact no nystagmus is noted. Facial sensation is normal to touch throughout. The facial strength is normal throughout. No dysarthria is noted. Shoulder shrug is normal bilaterally. Motor: The strength is 5 over 5 throughout. Normal tone and bulk. Sensation: Sensation is normal to touch throughout. - Labs CBC & Chem 7: 08/29/22 07:20 08/29/22 07:20 Assessment and Plan Assessment: * Seizure, likely due to acute alcohol intoxication. * History of seizures in the past, which were felt to be related to alcoholism. * Hallucinations, likely due to alcohol withdrawal. * Lactic acidosis, likely due to seizure * Chronic heavy alcohol use * Tobacco use Plan: * EEG: Routine EEG is abnormal. The excessive beta activities due to medication effect (Ativan). Otherwise there is no focal slowing, epileptiform discharges or seizure on the EEG * No indication for antiepileptic medication unless patient has recurrent seizures or unprovoked seizure. * Watch for alcohol withdrawal/DTs. CIWA protocol. * Thiamine, folate, multivitamins * Patient informed by Dr. Brown of [place] state law of no driving unless seizure free for 6 months, climbing ladders, operate dangerous machinery or unsupervised swimming. * Patient concerned about abstinence from alcohol. * B12: 646, folate is 13.4, TSH is 3.560. As no additional neurological workup needed that. We'll sign off. Please reconsult if needed Time with Patient: Less than 30
[2022-08-31 14:29] VITALS: BP 151/96; RESP 15; TEMP 98.7
== END 2022-08-31 14:43 | disposition home or self-care (01) ==
LOC: EC 21:43 → 3SCARD 08-28 00:10 → INTOOBSV 08-29 10:03 → OBSVTOIN 08-29 10:03 → 5NMEDONC 08-31 01:39 → UNDODISIN 08-31 14:43
PROVIDERS: ADMIT Internal Medicine; ATTEND Internal Medicine
DX: G40.909 Epilepsy, unspecified, not intractable, without status epilepticus (principal); F10.120 Alcohol abuse with intoxication, uncomplicated; G93.41 Metabolic encephalopathy; F14.90 Cocaine use, unspecified, uncomplicated; M41.9 Scoliosis, unspecified; F17.200 Nicotine dependence, unspecified, uncomplicated; J32.2 Chronic ethmoidal sinusitis; Z88.8 Allergy status to other drugs, medicaments and biological substances; Z79.899 Other long term (current) drug therapy; Z82.49 Family history of ischemic heart disease and other diseases of the circulatory system; Z83.438 Family history of other disorder of lipoprotein metabolism and other lipidemia; Y90.8 Blood alcohol level of 240 mg/100 ml or more
CPT/HCPCS: 96376 ×3; 96361 ×4; 96375; 96360; 96372; 96374; 99285; 36415; 94760 ×4; 95816; 93005; 80053 ×2; 84443; 82607; 82550; 82746; 83605 ×2; 84484; 85025 ×2; 85610; 85730; 81001; 80306; 71046; 70450; G0378 ×5; G0480; S4990 ×3; J2060 ×4; J3411; J2405 ×2; 80320

== ENCOUNTER 2022-09-07 14:21 | Emergency (ER) | payer OTHER ==
--- NOTE | 2022-09-07 16:08 | ED ---
General Adult HPI - General Chief complaint: Chest Pain Stated complaint: Chest Pain/sob Time Seen by Provider: 09/07/22 15:54 Source: patient Mode of arrival: wheelchair Limitations: no limitations - History of Present Illness Initial comments: Patient is a 37-year-old man who presents with complaint of chest pain and left arm tingling. He states his symptoms had started about an hour ago. He was working. He has not had anginal symptoms, no dyspnea, diaphoresis, nausea vomiting, palpitations or syncope. The patient does note that his blood pres sure has been high recently, he did quit drinking 2 weeks ago. Onset/Timin -: hour(s) Location: chest Radiation: extremity Quality: aching Consistency: constant Improves with: none Worsens with: none Treatments Prior to Arrival: none - Related Data Previous Rx's Medication Instructions Recorded hydroCHLOROthiazide 12.5 mg PO DAILY #20 cap 09/07/22 Allergies Allergy/AdvReac Type Severity Reaction Status Date / Time promethazine AdvReac Hallucinati Verified 09/07/22 17:15 ons Review of Systems ROS Statement: Those systems with pertinent positive or pertinent negative responses have been documented in the HPI. ROS Other: All systems not noted in ROS Statement are negative. Constitutional: Denies: fever, chills, weakness Respiratory: Denies: cough, dyspnea Cardiovascular: Reports: as per HPI, chest pain. Denies: palpitations, or thopnea, edema, syncope Gastrointestinal: Denies: abdominal pain, nausea, vomiting, diarrhea Genitourinary: Denies: dysuria, hematuria Musculoskeletal: Denies: back pain Skin: Denies: rash Neurological: Reports: paresthesias. Denies: headache, weakness, numbness, confusion Past Medical History Past Medical History: Seizure Disorder Additional Past Medical History / Comment(s): pericarditis History of Any Multi-Drug Resistant Organisms: None Reported Past Surgical History: No Surgical Hx Reported Additional Past Surgical History / Comment(s): Oral surgery, EGD Past Anesthesia/Blood Transfusion Reactions: No Reported Reaction Past Psychological History: No Psychological Hx Reported Smoking Status: Current every day smoker Past Alcohol Use History: Daily, Heavy Past Drug Use History: Cocaine - Past Family History Mother Family Medical History: Hypertension Father Family Medical History: Hyperlipidemia General Exam Limitations: no limitations General appearance: alert, in no apparent distress Head exam: Present: atraumatic, normocephalic Eye exam: Present: normal appearance. Absent: scleral icterus, conjunctival injection ENT exam: Present: normal oropharynx Neck exam: Present: normal inspection Respiratory exam: Present: normal lung sounds bilaterally. Absent: respiratory distress, wheezes, rales, rhonchi, stridor Cardiovascular Exam: Present: regular rate, normal rhythm, normal heart sounds. Absent: systolic murmur, diastolic murmur, rubs, gallop GI/Abdominal exam: Present: soft. Absent: distended, tenderness, guarding, rebound, rigid, mass Extremities exam: Present: normal inspection, normal capillary refill. Absent: pedal edema, calf tenderness Back exam: Present: normal inspection. Absent: CVA tenderness (R), CVA tenderness (L) Neurological exam: Present: alert, oriented X3, CN II-XII intact. Absent: motor sensory deficit Skin exam: Present: warm, dry, intact, normal color. Absent: rash Course Vital Signs 09/07/22 09/07/22 14:25 18:39 Temperature 98.0 F 98.1 F Pulse Rate 103 H 68 Respiratory 20 18 Rate Blood Pressure 145/94 132/99 O2 Sat by Pulse 99 100 Oximetry EKG Findings - EKG Results: EKG: interpreted by ERMD, sinus rhythm EKG shows: tachycardia (Rate 109 bpm) - Blocks, [place], Hypertrophy, ST Abn: AV and intraventricular conduction: right bundle branch block (fixed/intermittent, complete/incomplete) (Incomplete) QRS axis and voltage: right axis deviation (+90 to +180) (Borderline right axis) Medical Decision Making - Medical Decision Making The patient had 2 view chest x-ray which I interpreted as being negative for acute infiltrate, congestive heart failure, pneumothorax. The patient had CT of the brain which I interpreted as being negative for bony trauma or acute intracranial hemorrhage. This patient is a 37-year-old man who presents with a number of symptoms that had come on earlier at work. The patient states that he was concerned about possibility of stroke. He had been told he had a previous stroke which gave him similar symptoms though he had no residual deficit. In light of this the CT was ordered. The patient's workup is unremarkable. He is feeling better and would like to go home. We discussed appropriate further care and follow-up as well as return parameters. Also recommendation to see cardiology to have a near term stress test. Was pt. sent in by a medical professional or institution (, [facility], TRANSPORTATION MODELER, urgent care, hospital, or custodial...) When possible be specific @ -[No] Did you speak to anyone other than the patient for history (EMS, parent, family, police, friend...)? What history was obtained from this source @ -[No] Did you review nursing and triage notes (agree or disagree)? Why? @ -[I reviewed and agree with nursing and triage notes] Were old charts reviewed (outside hosp., previous admission, EMS record, old EKG, old radiological studies, urgent care reports/EKG's, custodial records)? Report findings @ -[No old charts were reviewed] Differential Diagnosis (chest pain, altered mental status, abdominal pain women, abdominal pain men, vaginal bleeding, weakness, fever, dyspnea, syncope, headache, dizziness, GI bleed, back pain, seizure, CVA, palpatations, mental health, musculoskeletal)? @ -[Differential Chest Pain: Stable Angina, Unstable Angina, STEMI, NSTEMI Aortic Dissection, Pneumothorax, Musculoskeletal, Esophageal Spasm GERD, Cholecystitis, Pancreatitis, Zoster, this is not meant to be an all-inclusive list. EKG interpreted by me (3pts min.). @ -[As above] X-rays interpreted by me (1pt min.). @ -As above CT interpreted by me (1pt min.). @ -[As above U/S interpreted by me (1pt. min.). @ -[None done] What testing was considered but not performed or refused? (CT, X-rays, U/S, labs)? Why? @ -[None] What meds were considered but not given or refused? Why? @ -[None] Did you discuss the management of the patient with other professionals (professionals i.e. , [facility], TRANSPORTATION MODELER, lab, RT, psych nurse, social work associate, support director, teacher, homicide squad commanding officer, case filler)? Give summary @ -[No] Was smoking cessation discussed for >3mins.? @ -[No] Was critical care preformed (if so, how long)? @ -[No] Were there social determinants of health that impacted care today? How? (Homelessness, low income, unemployed, alcoholism, drug addiction, transportation, low edu. Level, literacy, decrease access to med. care, fci, rehab)? @ -[No] Was there de-escalation of care discussed even if they declined (Discuss DNR or withdrawal of care, Hospice)? DNR status @ -[No] What co-morbidities impacted this encounter? (DM, HTN, Smoking, COPD, CAD, Cancer, CVA, ARF, Chemo, Hep., AIDS, mental health diagnosis, sleep apnea, morbid obesity)? @ -[None] Was patient admitted / discharged? Hospital course, mention meds given and route, prescriptions, significant lab abnormalities, going to OR and other pertinent info. @ -[Discharged to follow-up with cardiology Undiagnosed new problem with uncertain prognosis? @ -[No] Drug Therapy requiring intensive monitoring for toxicity (Heparin, Nitro, Insulin, Cardizem)? @ -[No] Were any procedures done? @ -[No] Diagnosis/symptom? @ -[Acute chest pain, uncomplicated Acute, or Chronic, or Acute on Chronic? @ -[default] Uncomplicated (without systemic symptoms) or Complicated (systemic symptoms)? @ -[default] Side effects of treatment? @ -[No] Exacerbation, Progression, or Severe Exacerbation? @ -[No] Poses a threat to life or bodily function? How? (Chest pain, [place], [place], pneumonia, PE, COPD, DKA, ARF, appy, cholecystitis, CVA, Diverticulitis, Homicidal, Suicidal, threat to staff... and all critical care pts) @ -[No] - Lab Data Result diagrams: 09/07/22 16:14 09/07/22 16:14 Lab Results 09/07/22 09/07/22 09/07/22 Range/Units 16:14 16:14 16:14 WBC 9.4 (3.8-10.6) k/uL RBC 5.14 (4.30-5.90) m/uL Hgb 15.7 (13.0-17.5) gm/dL Hct 47.1 (39.0-53.0) % MCV 91.8 (80.0-100.0) fL MCH 30.7 (25.0-35.0) pg MCHC 33.4 (31.0-37.0) g/dL RDW 12.9 (11.5-15.5) % Plt Count 301 (150-450) k/uL MPV 7.7 Neutrophils % 61 % Lymphocytes % 28 % Monocytes % 8 % Eosinophils % 2 % Basophils % 0 % Neutrophils # 5.7 (1.3-7.7) k/uL Lymphocytes # 2.6 (1.0-4.8) k/uL Monocytes # 0.7 (0-1.0) k/uL Eosinophils # 0.2 (0-0.7) k/uL Basophils # 0.0 (0-0.2) k/uL PT 10.6 (9.0-12.0) sec INR 1.0 (<1.2) APTT 26.3 (22.0-30.0) sec Sodium 138 (137-145) mmol/L Potassium 4.3 (3.5-5.1) mmol/L Chloride 101 (98-107) mmol/L Carbon Dioxide 24 (22-30) mmol/L Anion Gap 13 mmol/L BUN 12 (9-20) mg/dL Creatinine 0.90 (0.66-1.25) mg/dL Est GFR (CKD-EPI)AfAm >90 (>60 ml/min/1.73 sqM) Est GFR (CKD-EPI)NonAf >90 (>60 ml/min/1.73 sqM) Glucose 89 (74-99) mg/dL Calcium 10.0 (8.4-10.2) mg/dL Total Bilirubin 0.5 (0.2-1.3) mg/dL AST 24 (17-59) U/L ALT 30 (4-49) U/L Alkaline Phosphatase 59 (38-126) U/L Troponin I (0.000-0.034) ng/mL Total Protein 8.0 (6.3-8.2) g/dL Albumin 4.7 (3.5-5.0) g/dL Urine Opiates Screen (NotDetected) Ur Oxycodone Screen (NotDetected) Urine Methadone Screen (NotDetected) Ur Propoxyphene Screen (NotDetected) Ur Barbiturates Screen (NotDetected) U Tricyclic Antidepress (NotDetected) Ur Phencyclidine Scrn (NotDetected) Ur Amphetamines Screen (NotDetected) U Methamphetamines Scrn (NotDetected) U Benzodiazepines Scrn (NotDetected) Urine Cocaine Screen (NotDetected) U Marijuana (THC) Screen (NotDetected) 09/07/22 09/07/22 Range/Units 16:14 16:53 WBC (3.8-10.6) k/uL RBC (4.30-5.90) m/uL Hgb (13.0-17.5) gm/dL Hct (39.0-53.0) % MCV (80.0-100.0) fL MCH (25.0-35.0) pg MCHC (31.0-37.0) g/dL RDW (11.5-15.5) % Plt Count (150-450) k/uL MPV Neutrophils % % Lymphocytes % % Monocytes % % Eosinophils % % Basophils % % Neutrophils # (1.3-7.7) k/uL Lymphocytes # (1.0-4.8) k/uL Monocytes # (0-1.0) k/uL Eosinophils # (0-0.7) k/uL Basophils # (0-0.2) k/uL PT (9.0-12.0) sec INR (<1.2) APTT (22.0-30.0) sec Sodium (137-145) mmol/L Potassium (3.5-5.1) mmol/L Chloride (98-107) mmol/L Carbon Dioxide (22-30) mmol/L Anion Gap mmol/L BUN (9-20) mg/dL Creatinine (0.66-1.25) mg/dL Est GFR (CKD-EPI)AfAm (>60 ml/min/1.73 sqM) Est GFR (CKD-EPI)NonAf (>60 ml/min/1.73 sqM) Glucose (74-99) mg/dL Calcium (8.4-10.2) mg/dL Total Bilirubin (0.2-1.3) mg/dL AST (17-59) U/L ALT (4-49) U/L Alkaline Phosphatase (38-126) U/L Troponin I <0.012 (0.000-0.034) ng/mL Total Protein (6.3-8.2) g/dL Albumin (3.5-5.0) g/dL Urine Opiates Screen Not Detected (NotDetected) Ur Oxycodone Screen Not Detected (NotDetected) Urine Methadone Screen Not Detected (NotDetected) Ur Propoxyphene Screen Not Detected (NotDetected) Ur Barbiturates Screen Not Detected (NotDetected) U Tricyclic Antidepress Not Detected (NotDetected) Ur Phencyclidine Scrn Not Detected (NotDetected) Ur Amphetamines Screen Not Detected (NotDetected) U Methamphetamines Scrn Not Detected (NotDetected) U Benzodiazepines Scrn Detected H (NotDetected) Urine Cocaine Screen Not Detected (NotDetected) U Marijuana (THC) Screen Not Detected (NotDetected) Disposition Clinical Impression: Chest pain, Hypertension Disposition: HOME SELF-CARE Condition: Good Instructions (If sedation given, give patient instructions): Chest Pain (ED) Prescriptions: hydroCHLOROthiazide 12.5 mg PO DAILY #20 cap Is patient prescribed a controlled substance at d/c from ED?: No Referrals: None,Stated [Primary Care Provider] - 1-2 days
[2022-09-07 16:20] LABS: Basophils % (A) 0 %; Eosinophils # (A) 0.2 k/uL (0-0.7); Eosinophils % (A) 2 %; HCT 47.1 % (39.0-53.0); HGB 15.7 gm/dL (13.0-17.5); Lymphocytes # (A) 2.6 k/uL (1.0-4.8); Lymphocytes % (A) 28 %; MCH 30.7 pg (25.0-35.0); MCHC 33.4 g/dL (31.0-37.0); MCV 91.8 fL (80.0-100.0); Mean Platelet Volume 7.7; Monocytes # (A) 0.7 k/uL (0-1.0); Monocytes % (A) 8 %; Neutrophils # (A) 5.7 k/uL (1.3-7.7); Neutrophils % (A) 61 %; Platelet Count 301 k/uL (150-450); RBC 5.14 m/uL (4.30-5.90); RDW 12.9 % (11.5-15.5); WBC 9.4 k/uL (3.8-10.6)
[2022-09-07 16:30] LABS: ALT 30 U/L (4-49); AST 24 U/L (17-59); African American GFR (CKD) >90 (>60 ml/min/1.73 sqM); Albumin 4.7 g/dL (3.5-5.0); Alkaline Phosphatase 59 U/L (38-126); Anion Gap 13 mmol/L; Blood Urea Nitrogen 12 mg/dL (9-20); Carbon Dioxide 24 mmol/L (22-30); Chloride 101 mmol/L (98-107); Glucose 89 mg/dL (74-99); Non-African American GFR(CKD) >90 (>60 ml/min/1.73 sqM); Potassium 4.3 mmol/L (3.5-5.1); Sodium 138 mmol/L (137-145); Total Bilirubin 0.5 mg/dL (0.2-1.3)
--- NOTE | 2022-09-07 16:36 | CT ---
EXAMINATION TYPE: CT brain wo con CT DLP: 1145.4 mGycm, Automated exposure control for dose reduction was used. DATE OF EXAM: 09/07/2022 4:30 PM COMPARISON: CT brain 08/28/2022 CLINICAL INDICATION:Male, 37 years old with history of L arm paresthesia, left arm numbness and heada colleen TECHNIQUE: Brain: Multiple axial CT images of the brain were obtained without IV contrast. Coronal and sagittal reformats reviewed. FINDINGS: Brain: Extra-axial spaces: No abnormal extra-axial fluid collections. Ventricular system: Within normal limits Cerebral parenchyma: No acute intraparenchymal hemorrhage or mass effect. The murray-white junction is well differentiated. Cerebellum: Unremarkable. Mass effect: No evidence of midline shift. Intracranial vasculature: unremarkable Soft tissues: Normal. Calvarium/osseous structures: No depressed skull fracture. Paranasal sinuses and mastoid air cells: Clear Visualized orbits: Orbital contents are intact. IMPRESSION: No acute intracranial process or significant change from prior.
[2022-09-07 16:48] LABS: Partial Thromboplastin Time 26.3 sec (22.0-30.0); Prothrombin Time 10.6 sec (9.0-12.0)
--- NOTE | 2022-09-07 17:08 | XR ---
EXAMINATION TYPE: XR chest 2V DATE OF EXAM: 09/07/2022 5:03 PM COMPARISON: Chest radiographs from 08/27/2022 TECHNIQUE: XR chest 2V Frontal and lateral views of the chest. CLINICAL INDICATION:Male, 37 years old with history of L arm paresthesia; FINDINGS: Lungs/Pleura: There is no evidence of pleural effusion, focal consolidation, or pneumothorax. Pulmonary vascularity: Unremarkable. Heart/mediastinum: Cardiomediastinal silhouette is unremarkable. Musculoskeletal: No acute osseous pathology. IMPRESSION: No acute cardiopulmonary disease/process. No significant change from prior exam.
[2022-09-07 17:37] LABS: Amphetamine Screen,Urine Not Detected (NotDetected); Barbiturate Screen,Urine Not Detected (NotDetected); Benzodiazepines Screen,Urine Detected (NotDetected); Cocaine Screen,Urine Not Detected (NotDetected); Methadone Screen, Urine Not Detected (NotDetected); Opiate Screen,Urine Not Detected (NotDetected); Oxycodone Screen, Urine Not Detected (NotDetected); Phencyclidine Screen,Urine Not Detected (NotDetected); Tricyclic Antidepressant,Urine Not Detected (NotDetected); Urn Cannabinoid Scrn Not Detected (NotDetected)
[2022-09-07 18:44] VITALS: BP 132/99; PULSE 68; RESP 18; TEMP 98.1
== END 2022-09-07 18:46 | disposition home or self-care (01) ==
LOC: EC 14:21
DX: R07.89 Other chest pain (principal); I10 Essential (primary) hypertension; F17.200 Nicotine dependence, unspecified, uncomplicated; Z88.8 Allergy status to other drugs, medicaments and biological substances
CPT/HCPCS: 36415; 70450; 71046; 80053; 80306; 84484; 85025; 85610; 85730; 93005; 99285

== ENCOUNTER 2023-02-21 09:09 | Inpatient (IN) | payer OTHER ==
--- NOTE | 2023-02-21 10:13 | XR ---
EXAMINATION TYPE: XR chest 2V DATE OF EXAM: 02/21/2023 10:08 AM COMPARISON: Chest radiographs from 09/07/2022 TECHNIQUE: XR chest 2V Frontal and lateral views of the chest. CLINICAL INDICATION:Male, 37 years old with history of Chest Pain; FINDINGS: Lungs/Pleura: There is no evidence of pleural effusion, focal consolidation, or pneumothorax. Pulmonary vascularity: Unremarkable. Heart/mediastinum: Cardiomediastinal silhouette is unremarkable. Musculoskeletal: No acute osseous pathology. IMPRESSION: No acute cardiopulmonary disease/process.
[2023-02-21 10:16] LABS: Basophils % (A) 0 %; Eosinophils # (A) 0.1 k/uL (0-0.7); Eosinophils % (A) 1 %; HCT 46.7 % (39.0-53.0); HGB 16.1 gm/dL (13.0-17.5); Lymphocytes # (A) 1.8 k/uL (1.0-4.8); Lymphocytes % (A) 23 %; MCH 31.1 pg (25.0-35.0); MCHC 34.5 g/dL (31.0-37.0); MCV 90.3 fL (80.0-100.0); Monocytes # (A) 0.3 k/uL (0-1.0); Monocytes % (A) 4 %; Neutrophils # (A) 5.6 k/uL (1.3-7.7); Neutrophils % (A) 70 %; Platelet Count 257 k/uL (150-450); RBC 5.17 m/uL (4.30-5.90); RDW 11.9 % (11.5-15.5); WBC 7.9 k/uL (3.8-10.6)
[2023-02-21 10:24] LABS: Partial Thromboplastin Time 26.4 sec (22.0-30.0); Prothrombin Time 10.9 sec (10.0-12.5)
[2023-02-21 10:26] LABS: ALT 52 U/L (4-49); AST 52 U/L (17-59); African American GFR (CKD) >90 (>60 ml/min/1.73 sqM); Albumin 5.1 g/dL (3.5-5.0); Alkaline Phosphatase 62 U/L (38-126); Anion Gap 15 mmol/L; Blood Urea Nitrogen 11 mg/dL (9-20); Carbon Dioxide 22 mmol/L (22-30); Chloride 96 mmol/L (98-107); Glucose 82 mg/dL (74-99); Lipase 74 U/L (23-300); Non-African American GFR(CKD) >90 (>60 ml/min/1.73 sqM); Potassium 4.8 mmol/L (3.5-5.1); Sodium 133 mmol/L (137-145); Total Bilirubin 1.7 mg/dL (0.2-1.3); Total Protein 8.5 g/dL (6.3-8.2)
[2023-02-21] MEDS ORDERED: LORazepam 2 MG/ML INJ IV STA (10:28)
[2023-02-21] MEDS ORDERED: THIAMINE 100 MG/ML 2 ML VIAL IM STA (10:29)
[2023-02-21] MEDS ORDERED: LORazepam 2 MG/ML INJ IV PRN (10:29)
--- NOTE | 2023-02-21 10:31 | ED ---
General Adult HPI - General Chief complaint: Chest Pain Stated complaint: chest pain-withdrawl Time Seen by Provider: 02/21/23 09:41 Source: patient, RN notes reviewed, old records reviewed Mode of arrival: ambulatory Limitations: no limitations - History of Present Illness Initial comments: 37-year-old male presents for evaluation of tremor, hallucination, chest pain. Patient states that he began abstaining from alcohol yesterday evening. He has history of alcoholism and has required alcohol rehabilitation the past. He states that in the past he said alcohol smell related withdrawal seizure. He denies seizure activity. He reports a central nonradiating chest pain. No vomiting. No abdominal pain. Is having visual hallucinations. - Related Data Home Medications Medication Instructions Recorded Confirmed Famotidine [Pepcid] 20 mg PO BID 02/21/23 02/21/23 Allergies Allergy/AdvReac Type Severity Reaction Status Date / Time promethazine AdvReac Hallucinati Verified 02/21/23 11:41 ons Review of Systems ROS Statement: Those systems with pertinent positive or pertinent negative responses have been documented in the HPI. ROS Other: All systems not noted in ROS Statement are negative. Past Medical History Past Medical History: Seizure Disorder Additional Past Medical History / Comment(s): pericarditis. right bundle branch History of Any Multi-Drug Resistant Organisms: None Reported Past Surgical History: No Surgical Hx Reported Additional Past Surgical History / Comment(s): Oral surgery, EGD Past Anesthesia/Blood Transfusion Reactions: No Reported Reaction Past Psychological History: No Psychological Hx Reported Smoking Status: Current every day smoker Past Alcohol Use History: Daily, Heavy Past Drug Use History: Cocaine - Past Family History Mother Family Medical History: Hypertension Father Family Medical History: Hyperlipidemia General Exam Limitations: no limitations General appearance: alert, anxious Head exam: Present: atraumatic, normocephalic Eye exam: Present: normal appearance, PERRL ENT exam: Present: normal exam Neck exam: Present: normal inspection. Absent: tenderness, meningismus Respiratory exam: Present: normal lung sounds bilaterally. Absent: respiratory distress, wheezes Cardiovascular Exam: Present: regular rate, normal rhythm GI/Abdominal exam: Present: soft. Absent: distended, tenderness, guarding Extremities exam: Present: normal inspection, normal capillary refill. Absent: pedal edema Neurological exam: Present: alert, oriented X3, CN II-XII intact. Absent: motor sensory deficit Skin exam: Present: warm, dry, intact Course Vital Signs 02/21/23 02/21/23 02/21/23 09:30 10:04 10:56 Temperature 98.9 F 98 F Pulse Rate 86 78 Pulse Rate [ 88 Pulse Oximetery ] Respiratory 16 18 Rate Blood Pressure 147/85 153/92 O2 Sat by Pulse 99 98 Oximetry 02/21/23 11:17 Temperature Pulse Rate 73 Pulse Rate [ Pulse Oximetery ] Respiratory 18 Rate Blood Pressure 154/109 O2 Sat by Pulse 99 Oximetry Medical Decision Making - Medical Decision Making Was pt. sent in by a medical professional or institution (, PA, HEAD FILTER PRESS TENDER, urgent care, hospital, or half-way...) When possible be specific @ -No Did you speak to anyone other than the patient for history (EMS, parent, family, police, friend...)? What history was obtained from this source @ -No Did you review nursing and triage notes (agree or disagree)? Why? @ -I reviewed and agree with nursing and triage notes Were old charts reviewed (outside hosp., previous admission, EMS record, old EKG, old radiological studies, urgent care reports/EKG's, half-way records)? Report findings @ -No old charts were reviewed Differential Diagnosis (chest pain, altered mental status, abdominal pain women, abdominal pain men, vaginal bleeding, weakness, fever, dyspnea, syncope, headache, dizziness, GI bleed, back pain, seizure, CVA, palpatations, mental health, musculoskeletal)? @ -Differential Chest Pain: Stable Angina, Unstable Angina, STEMI, NSTEMI Aortic Dissection, Pneumothorax, Musculoskeletal, Esophageal Spasm GERD, Cholecystitis, Pancreatitis, Zoster, this is not meant to be an all-inclusive list. EKG interpreted by me (3pts min.). @ Sinus rhythm with sinus arrhythmia rate of 70, UT interval 162, QRS duration 120, QTC 404, no ST segment elevation. X-rays interpreted by me (1pt min.). @ Chest x-ray negative for acute cardiopulmonary disease CT interpreted by me (1pt min.). @ -None done U/S interpreted by me (1pt. min.). @ -None done What testing was considered but not performed or refused? (CT, X-rays, U/S, labs)? Why? @ -None What meds were considered but not given or refused? Why? @ -None Did you discuss the management of the patient with other professionals (professionals i.e. , PA, HEAD FILTER PRESS TENDER, lab, RT, psych nurse, social services analyst, director of product marketing, teacher, third officer, community case manager)? Give summary @ - sheet Was smoking cessation discussed for >3mins.? @ -No Was critical care preformed (if so, how long)? @ -No Were there social determinants of health that impacted care today? How? (Homelessness, low income, unemployed, alcoholism, drug addiction, transportation, low edu. Level, literacy, decrease access to med. care, nursing home, rehab)? @ -No Was there de-escalation of care discussed even if they declined (Discuss DNR or withdrawal of care, Hospice)? DNR status @ -No What co-morbidities impacted this encounter? (DM, HTN, Smoking, COPD, CAD, Cancer, CVA, ARF, Chemo, Hep., AIDS, mental health diagnosis, sleep apnea, morbid obesity)? @ -[Alcoholism Was patient admitted / discharged? Hospital course, mention meds given and route, prescriptions, significant lab abnormalities, going to OR and other pertinent info. @ -[37-year-old male with hallucination, chest discomfort. Patient is likely withdrawing from alcohol. Given the hallucinations he will be observed on benzodiazepines for withdrawal. He is requesting rehabilitation after he is medically cleared. He'll be admitted to this institution. Undiagnosed new problem with uncertain prognosis? @ -No Drug Therapy requiring intensive monitoring for toxicity (Heparin, Nitro, Insulin, Cardizem)? @ -No Were any procedures done? @ -No Diagnosis/symptom? @Alcohol withdrawal Acute, or Chronic, or Acute on Chronic? @Acute Uncomplicated (without systemic symptoms) or Complicated (systemic symptoms)? @ -default Side effects of treatment? @ -No Exacerbation, Progression, or Severe Exacerbation? @ -No Poses a threat to life or bodily function? How? (Chest pain, USA, OR, pneumonia, PE, COPD, DKA, ARF, appy, cholecystitis, CVA, Diverticulitis, Homicidal, Suicid al, threat to staff... and all critical care pts) @Risk of delirium tremens - Lab Data Result diagrams: 02/21/23 09:50 02/21/23 09:50 Lab Results 02/21/23 02/21/23 02/21/23 Range/Units 09:50 09:50 09:50 WBC 7.9 (3.8-10.6) k/uL RBC 5.17 (4.30-5.90) m/uL Hgb 16.1 (13.0-17.5) gm/dL Hct 46.7 (39.0-53.0) % MCV 90.3 (80.0-100.0) fL MCH 31.1 (25.0-35.0) pg MCHC 34.5 (31.0-37.0) g/dL RDW 11.9 (11.5-15.5) % Plt Count 257 (150-450) k/uL MPV 8.0 Neutrophils % 70 % Lymphocytes % 23 % Monocytes % 4 % Eosinophils % 1 % Basophils % 0 % Neutrophils # 5.6 (1.3-7.7) k/uL Lymphocytes # 1.8 (1.0-4.8) k/uL Monocytes # 0.3 (0-1.0) k/uL Eosinophils # 0.1 (0-0.7) k/uL Basophils # 0.0 (0-0.2) k/uL PT 10.9 (10.0-12.5) sec INR 1.0 (<1.2) APTT 26.4 (22.0-30.0) sec Sodium 133 L (137-145) mmol/L Potassium 4.8 (3.5-5.1) mmol/L Chloride 96 L (98-107) mmol/L Carbon Dioxide 22 (22-30) mmol/L Anion Gap 15 mmol/L BUN 11 (9-20) mg/dL Creatinine 0.69 (0.66-1.25) mg/dL Est GFR (CKD-EPI)AfAm >90 (>60 ml/min/1.73 sqM) Est GFR (CKD-EPI)NonAf >90 (>60 ml/min/1.73 sqM) Glucose 82 (74-99) mg/dL Calcium 10.0 (8.4-10.2) mg/dL Magnesium 2.0 (1.6-2.3) mg/dL Total Bilirubin 1.7 H (0.2-1.3) mg/dL AST 52 (17-59) U/L ALT 52 H (4-49) U/L Alkaline Phosphatase 62 (38-126) U/L Troponin I (0.000-0.034) ng/mL Total Protein 8.5 H (6.3-8.2) g/dL Albumin 5.1 H (3.5-5.0) g/dL Lipase 74 (23-300) U/L 02/21/23 Range/Units 09:50 WBC (3.8-10.6) k/uL RBC (4.30-5.90) m/uL Hgb (13.0-17.5) gm/dL Hct (39.0-53.0) % MCV (80.0-100.0) fL MCH (25.0-35.0) pg MCHC (31.0-37.0) g/dL RDW (11.5-15.5) % Plt Count (150-450) k/uL MPV Neutrophils % % Lymphocytes % % Monocytes % % Eosinophils % % Basophils % % Neutrophils # (1.3-7.7) k/uL Lymphocytes # (1.0-4.8) k/uL Monocytes # (0-1.0) k/uL Eosinophils # (0-0.7) k/uL Basophils # (0-0.2) k/uL PT (10.0-12.5) sec INR (<1.2) APTT (22.0-30.0) sec Sodium (137-145) mmol/L Potassium (3.5-5.1) mmol/L Chloride (98-107) mmol/L Carbon Dioxide (22-30) mmol/L Anion Gap mmol/L BUN (9-20) mg/dL Creatinine (0.66-1.25) mg/dL Est GFR (CKD-EPI)AfAm (>60 ml/min/1.73 sqM) Est GFR (CKD-EPI)NonAf (>60 ml/min/1.73 sqM) Glucose (74-99) mg/dL Calcium (8.4-10.2) mg/dL Magnesium (1.6-2.3) mg/dL Total Bilirubin (0.2-1.3) mg/dL AST (17-59) U/L ALT (4-49) U/L Alkaline Phosphatase (38-126) U/L Troponin I <0.012 (0.000-0.034) ng/mL Total Protein (6.3-8.2) g/dL Albumin (3.5-5.0) g/dL Lipase (23-300) U/L Disposition Clinical Impression: Alcohol abuse, Chest pain, Alcohol withdrawal Disposition: ADMITTED IP TO THIS HOSP Condition: Stable Is patient prescribed a controlled substance at d/c from ED?: No Referrals: None,Stated [Primary Care Provider] - 1-2 days Time of Disposition: 12:00
[2023-02-21] MEDS ORDERED: NALOXONE 0.4 MG/ML 1 ML VIAL IV PRN (11:56)
[2023-02-21] MEDS: SODIUM CHLORIDE 0.9% 1,000 ML IV SCH (12:16)
[2023-02-21] MEDS: LORazepam 2 MG/ML INJ IV PRN ×5 (12:34→21:11)
[2023-02-21] MEDS: PANTOPRAZOLE 40 MG/10 ML VIAL IVP SCH ×2 (14:16→21:30)
--- NOTE | 2023-02-22 00:31 | HP ---
HISTORY AND PHYSICAL CHIEF COMPLAINT: Chest pain and alcohol withdrawal symptoms. HISTORY OF PRESENT ILLNESS: This 37-year-old gentleman with a past history of multiple problems including alcohol withdrawal seizures, EtOH/pericarditis, right bundle-branch block complaining of left-sided chest pain. The patient also had some alcohol withdrawal symptoms. The patient was evaluated. Alcohol level is not available. There is no history of fever, rigors, or chills at this time. PAST MEDICAL HISTORY: History of seizure disorder, possible alcohol withdrawal and pericarditis, right bundle- branch block. Rest of history and chart are also reviewed. HOME MEDICATIONS: Pepcid. Doses are reviewed. ALLERGIES: Promethazine. FAMILY HISTORY: History of hypertension. SOCIAL HISTORY: Heavy alcohol intake and cocaine. REVIEW OF SYSTEMS: Fourteen-point review is negative as mentioned earlier. PHYSICAL EXAMINATION: VITAL SIGNS: Pulse is 78, blood pressure 153/92, and respirations 18. HEENT: Conjunctivae normal. NECK: No jugular venous distention. CARDIOVASCULAR: S1, S2 muffed. RESPIRATIONS: Diminished at the bases. No rhonchi. No crackles. ABDOMEN: Soft and nontender. NERVOUS SYSTEM: No focal deficits. SKIN: No ulcer, rash, or swelling. JOINTS: No active deforming arthropathy. LABORATORY DATA: Reviewed. ASSESSMENT: 1. Chest pain, possibly acute pericarditis, rule out coronary disease. 2. Alcohol withdrawal and early delirium tremens. 3. Mild hyponatremia. 4. History of pericarditis previously. 5. Right bundle block in EKG. 6. History of nicotine dependence. 7. History of seizure disorder, possibly alcohol withdrawal. RECOMMENDATIONS AND DISCUSSION: This 37-year-old gentleman presented with multiple complex medical issues. We will monitor the patient closely. Rule out acute coronary syndrome. I would also recommend sedimentation rate and CRP, Cardiology consultation, 2D echo with Doppler. Alcohol withdrawal monitoring. [facility] protocol. Symptomatic treatment. Overall prognosis guarded because of multiple complex medical issues. Further recommendations to follow. MMODL / IJN: [id number] / MTDD
[2023-02-22] MEDS: LORazepam 2 MG/ML INJ IV PRN ×5 (02:35→21:24)
[2023-02-22] MEDS: SODIUM CHLORIDE 0.9% 1,000 ML IV SCH ×2 (03:23→12:29)
[2023-02-22] MEDS: THIAMINE 100 MG TAB PO SCH (09:46)
[2023-02-22] MEDS: PANTOPRAZOLE 40 MG/10 ML VIAL IVP SCH ×2 (09:46→21:25)
--- NOTE | 2023-02-22 10:34 | CA ---
Transthoracic Echo Report Name: Nsih Soliman Age: 37 Gender: M : 1985 Exam Date: 02/21/2023 15:41 Exam Location: [facility] Ht (in): 72 Wt (lb): 200 Ordering Physician: Yomaira Chavira Attending/Referring Phys: Chocolate Maker Shiela Alamo RDCS Procedure CPT: Indications: chest pain, hx of pericarditis Cardiac Hx: Technical Quality: Good Contrast 1: Total Dose (mL): Contrast 2: Total Dose (mL): MEASUREMENTS (Male / Female) Normal Values 2D ECHO LV Diastolic Diameter PLAX 4.0 cm 4.2 - 5.9 / 3.9 - 5.3 cm LV Systolic Diameter PLAX 2.6 cm IVS Diastolic Thickness 1.2 cm 0.6 - 1.0 / 0.6 - 0.9 cm LVPW Diastolic Thickness 1.4 cm 0.6 - 1.0 / 0.6 - 0.9 cm LV Relative Wall Thickness 0.6 RV Internal Dim ED PLAX 2.8 cm LA Systolic Diameter LX 3.4 cm 3.0 - 4.0 / 2.7 - 3.8 cm LV Diastolic Volume MOD 4C 98.5 cm??? LV Systolic Volume MOD 4C 41.6 cm??? LV Ejection Fraction MOD 4C 57.8 % LV Cardiac Index MOD 4C 2400.3 cm???/min???m??? LV Diastolic Length 4C 8.6 cm LV Systolic Length 4C 7.1 cm LV Diastolic Volume MOD 2C 45.0 cm??? LV Systolic Volume MOD 2C 17.7 cm??? LV Ejection Fraction MOD 2C 60.6 % LV Cardiac Index MOD 2C 1147.9 cm???/min???m??? LV Diastolic Length 2C 8.5 cm LV Systolic Length 2C 7.3 cm LA Volume 30.6 cm??? 18 - 58 / 22 - 52 cm??? LA Volume Index 14.2 cm???/m??? 16 - 28 cm???/m??? M-MODE Aortic Root Diameter MM 3.4 cm MV E Point Septal Separation 0.5 cm AV Cusp Separation MM 2.5 cm DOPPLER AV Peak Velocity 135.3 cm/s AV Peak Gradient 7.3 mmHg MV Area PHT 3.9 cm??? Mitral E Point Velocity 56.7 cm/s Mitral A Point Velocity 52.9 cm/s Mitral E to A Ratio 1.1 MV Deceleration Time 196.9 ms MV E' Velocity 8.8 cm/s Mitral E to MV E' Ratio 6.4 FINDINGS Left Ventricle Left ventricular ejection fraction is estimated at 55-60 %. Left ventricular cavity size normal. Mildly increased septal wall thickness. Right Ventricle Normal right ventricular size. Unable to estimate the right ventricular systolic pressure. Right Atrium Normal right atrial size. Left Atrium Normal left atrial size. Mitral Valve Structurally normal mitral valve. No mitral stenosis, regurgitation or prolapse. Aortic Valve Trileaflet aortic valve. No aortic valve stenosis or regurgitation. Tricuspid Valve Structurally normal tricuspid valve. No tricuspid regurgitation. Pulmonic Valve Structurally normal pulmonic valve. No pulmonic regurgitation. Pericardium No pericardial effusion. Aorta Normal size aortic root and proximal ascending aorta. CONCLUSIONS Normal LV size and systolic function. No significant abnormality in the Doppler exam. No pericardial effusion Previewed by: Dr. Ivelisse Saucedo MD (Electronically Signed) Final Date: 22 February 2023 10:32
--- NOTE | 2023-02-22 10:56 | P.CRDCN ---
History of Present Illness History of present illness: HISTORY OF PRESENT ILLNESS: This is a 37-year-old male with a past medical history significant for alcohol abuse and pericarditis. 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 We have been asked to see the patient in consultation for chest pain. Patient examined at the bedside. Patient states he is currently withdrawing from alcohol. He presented to the hospital with a chief complaint of chest pain. He described the pain as a burning type sensation. Denied any radiation of the pain. This morning at the time of examination, he denies any chest pain or pressure. He denies any shortness of breath vital signs are stable. * EKG reveals sinus mechanism with no signs of acute ischemia. No evidence of pericarditis on EKG. * Chest xray negative for acute process * Laboratory data: W BC 7.9. Hemoglobin 16.1. Platelet count 257. Sodium 133. Potassium 4.8. BUN 11. Creatinine 0.69. AST 52. ALT 52. Troponin negative 1 * Current home cardiac medications include none * No previous echocardiogram or cardiac catheterization available for review in EMR REVIEW OF SYSTEMS: At the time of my exam: CONSTITUTIONAL: Denies fever or chills. HEENT: Denies blurred vision, vision changes, or eye pain. Denies hemoptysis CARDIOVASCULAR: Denies chest pain. Denies orthopnea. Denies PND. Denies palpitations RESPIRATORY: Denies shortness of breath. GASTROINTESTINAL: Denies abdominal pain. Denies nausea or vomiting. HEMATOLOGIC: Denies bleeding disorders. GENITOURINARY: Denies any blood in urine. SKIN: Denies pruitis. Denies rash. PHYSICAL EXAM: VITAL SIGNS: Reviewed. GENERAL: Well-developed in no acute distress. HEENT: Head is normocephalic. Pupils are equal, round. Sclerae anicteric. Mucous membranes of the mouth are moist. Neck supple. No JVD or thyromegaly LUNGS: Respirations even and unlabored. Lungs essentially clear to auscultation bilaterally. HEART: Regular rate and rhythm. S1 and S2 heard. ABDOMEN: Soft. Nondistended. Nontender. EXTREMITIES: Normal range of motion. No clubbing or cyanosis. Peripheral pulses intact. No lower extremity edema NEUROLOGIC: Awake and alert. Oriented x 3. ASSESSMENT: Chest pain History of alcohol abuse History of pericarditis History of seizure-due to alcohol withdrawal PLAN: An acute coronary event has been ruled out Obtain additional troponin 2-D echo has been ordered. Await results Continued abstinence from alcohol is recommended Patient is currently stable from a cardiac perspective Further recommendations pending patient's course Nurse practitioner note has been reviewed by physician. Signing provider agrees with the documented findings, assessment, and plan of care. Past Medical History Past Medical History: Seizure Disorder Additional Past Medical History / Comment(s): pericarditis. right bundle branch History of Any Multi-Drug Resistant Organisms: None Reported Past Surgical History: No Surgical Hx Reported Additional Past Surgical History / Comment(s): Oral surgery, EGD Past Anesthesia/Blood Transfusion Reactions: No Reported Reaction Past Psychological History: No Psychological Hx Reported Smoking Status: Current every day smoker Past Alcohol Use History: Daily, Heavy Past Drug Use History: Cocaine - Past Family History Mother Family Medical History: Hypertension Father Family Medical History: Hyperlipidemia Medications and Allergies Home Medications Medication Instructions Recorded Confirmed Type Famotidine [Pepcid] 20 mg PO BID 02/21/23 02/21/23 History Allergies Allergy/AdvReac Type Severity Reaction Status Date / Time promethazine AdvReac Hallucinati Verified 02/21/23 11:41 ons Physical Exam Vitals: Vital Signs Temp Pulse Pulse Resp BP Pulse Ox 02/21/23 12:22 89 18 149/99 99 02/21/23 11:17 73 18 154/109 99 02/21/23 10:56 98 F 78 18 153/92 98 02/21/23 10:04 88 02/21/23 09:30 98.9 F 86 16 147/85 99 Intake and Output 02/20/23 02/21/23 02/21/23 22:59 06:59 14:59 Other: Weight 90.718 kg Results 02/21/23 09:50 02/21/23 09:50 Cardiac Enzymes 02/21/23 02/21/23 Range/Units 09:50 09:50 AST 52 (17-59) U/L Troponin I <0.012 (0.000-0.034) ng/mL Coagulation 02/21/23 Range/Units 09:50 PT 10.9 (10.0-12.5) sec APTT 26.4 (22.0-30.0) sec CBC 02/21/23 Range/Units 09:50 WBC 7.9 (3.8-10.6) k/uL RBC 5.17 (4.30-5.90) m/uL Hgb 16.1 (13.0-17.5) gm/dL Hct 46.7 (39.0-53.0) % Plt Count 257 (150-450) k/uL Comprehensive Metabolic Panel 02/21/23 Range/Units 09:50 Sodium 133 L (137-145) mmol/L Potassium 4.8 (3.5-5.1) mmol/L Chloride 96 L (98-107) mmol/L Carbon Dioxide 22 (22-30) mmol/L BUN 11 (9-20) mg/dL Creatinine 0.69 (0.66-1.25) mg/dL Glucose 82 (74-99) mg/dL Calcium 10.0 (8.4-10.2) mg/dL AST 52 (17-59) U/L ALT 52 H (4-49) U/L Alkaline Phosphatase 62 (38-126) U/L Total Protein 8.5 H (6.3-8.2) g/dL Albumin 5.1 H (3.5-5.0) g/dL Current Medications Generic Name Dose Route Start Last Admin Trade Name Freq PRN Reason Stop Dose Admin Sodium Chloride 1,000 mls @ 75 mls/hr 02/21/23 12:00 02/21/23 12:16 Saline 0.9% IV 75 mls/hr .[id number] RITA Administration Lorazepam 1 mg 02/21/23 10:29 02/21/23 12:34 Lorazepam 2 Mg/Ml Inj IV 1 mg Q1HR PRN Administration CIWA 10 to 15 Lorazepam 1 mg 02/21/23 10:29 Lorazepam 2 Mg/Ml Inj IV Q2HR PRN CIWA 8 or 9 Lorazepam 2 mg 02/21/23 10:29 Lorazepam 2 Mg/Ml Inj IV 02/23/23 10:29 Q10M PRN CIWA 16 or higher Naloxone HCl 0.2 mg 02/21/23 11:56 Naloxone 0.4 Mg/Ml 1 Ml Vial IV Q2M PRN Opioid Reversal Pantoprazole Sodium 40 mg 02/21/23 13:45 Pantoprazole 40 Mg/10 Ml Vial IVP BID RITA Thiamine HCl 100 mg 02/22/23 09:00 Thiamine 100 Mg Tab PO DAILY RITA Intake and Output 02/20/23 02/21/23 02/21/23 22:59 06:59 14:59 Other: Weight 90.718 kg Patient Weight 02/22/23 06:59 Weight 90.718 kg 02/21/23 09:50 02/21/23 09:50
[2023-02-22 13:22] VITALS: RESP 18
--- NOTE | 2023-02-22 16:47 | P.PN ---
Subjective Progress Note Date: 02/22/23 This is a 37-year-old male who was recently admitted with acute alcohol withdrawal and reported chest pain. Patient does have history of pericarditis in the past and was evaluated by cardiology and has been cleared for discharge with outpatient follow-up. Patient is maintained on CIWA protocol and continues to require Ativan for withdrawals and will add Librium. Patient is arranging for outpatient alcohol rehab that is scheduled for Monday. Will initiate Librium and monitor overnight and continue using CIWA protocol as needed with possible discharge in 24 hours. Review of systems: Constitutional: No reports of fatigue, fever, or chills Cardiovascular: No reports of chest pain or palpitations Respiratory: No reports of shortness of breath or cough GI: reports of intermittent nausea, no reports of vomiting, no diarrhea : No reports of dysuria or retention Neurovascular: No reports of generalized weakness, reports of having shaking and withdrawal symptoms All medications have been reviewed PHYSICAL EXAMINATION: GENERAL: The patient is alert and oriented x4, Well developed, well nourished. HEENT: Pupils are round and equally reacting to light. EOMI. no scleral icterus. No conjunctival pallor. Normocephalic, atraumatic. No pharyngeal erythema. No thyromegaly. CARDIOVASCULAR: S1 and S2 muffled PULMONARY: diminished breath sounds bilaterally with no wheezing or rhonchi noted. ABDOMEN: soft. Nontender on exam. non-distended, normoactive bowel sounds. No palpable organomegaly. MUSCULOSKELETAL: No joint swelling or deformity. EXTREMITIES: No cyanosis, clubbing, or pedal edema. NEUROLOGICAL: Gross neurological examination did not reveal any focal deficits. SKIN: No rashes. Assessment: Chest pain, ruled out ACS History of pericarditis Alcohol withdrawal and early delirium tremens Mild hyponatremia secondary to alcohol intake, improved Continued ongoing nicotine dependence History of seizure disorder possibly alcohol withdrawal related GI prophylaxis DVT prophylaxis Full code Plan: Recommend to continue with current medications and management and will continue on CIWA protocol. We'll also add Librium taper Continue symptomatic support including anti-nausea medications and gentle IV hydration Encouraged oral intake and increased activity as tolerated Patient was seen and evaluated by cardiology and has been cleared for discharge recommend an outpatient follow-up. 2-D echo was done showing a normal EF with no pericardial effusion noted Patient reports he is arranging for outpatient alcohol rehab and scheduled to go there Monday morning Will arrange for discharge planning in 24 hours. The impression and plan of care has been dictated by Yomaira Chavira, nurse practitioner as directed. Dr. Eros MD I have performed a history and examination and MDM of this patient, discussed the same with the dictator, and agree with the dictator's assessment and plan as written ,documented as a scribe. Based on total visit time, I have performed more than 50% of the visit. Any additional findings or plans will be noted. Objective - Vital Signs Vital signs: Vital Signs Temp 98.2 F 02/22/23 09:45 Pulse 79 02/22/23 09:45 Resp 16 02/22/23 09:45 BP 133/90 02/22/23 09:45 Pulse Ox 98 02/22/23 09:45 FiO2 Intake & Output 02/21/23 02/22/23 02/22/23 18:59 06:59 18:59 Intake Total 180 Balance 180 Weight 90.718 kg Intake: Oral 180 Other: Voiding Method Toilet Urinal # Voids 1 # Bowel Movements 1 - Labs CBC & Chem 7: 02/21/23 09:50 02/21/23 09:50
[2023-02-22] MEDS: chlordiazePOXIDE 25 MG CAP PO SCH ×2 (17:30→23:31)
[2023-02-23] MEDS: LORazepam 2 MG/ML INJ IV PRN (00:35)
[2023-02-23 06:35] VITALS: TEMP 97.6
[2023-02-23] MEDS: PANTOPRAZOLE 40 MG/10 ML VIAL IVP SCH (09:15)
[2023-02-23] MEDS: SODIUM CHLORIDE 0.9% 1,000 ML IV SCH (09:15)
[2023-02-23] MEDS: chlordiazePOXIDE 25 MG CAP PO SCH (09:15)
[2023-02-23] MEDS: THIAMINE 100 MG TAB PO SCH (09:15)
[2023-02-23 09:35] VITALS: BP 131/83; PULSE 86
--- NOTE | 2023-02-23 10:49 | P.PN ---
Subjective HISTORY OF PRESENT ILLNESS: This is a 37-year-old male with a past medical history significant for alcohol abuse and pericarditis. 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 We have been asked to see the patient in consultation for chest pain. Patient examined at the bedside. Patient states he is currently withdrawing from alcohol. He presented to the hospital with a chief complaint of chest pain. He described the pain as a burning type sensation. Denied any radiation of the pain. This morning at the time of examination, he denies any chest pain or pressure. He denies any shortness of breath vital signs are stable. * EKG reveals sinus mechanism with no signs of acute ischemia. No evidence of pericarditis on EKG. * Chest xray negative for acute process * Laboratory data: W BC 7.9. Hemoglobin 16.1. Platelet count 257. Sodium 133. Potassium 4.8. BUN 11. Creatinine 0.69. AST 52. ALT 52. Troponin neg ative 1 * Current home cardiac medications include none * No previous echocardiogram or cardiac catheterization available for review in EMR 02/23/2023 Patient examined this morning at the bedside. Patient denies chest pain or pressure. He denies shortness of breath. Echocardiogram completed revealing ejection fraction 55-60% with no significant valvular abnormalities. Vital signs are stable. PHYSICAL EXAM: VITAL SIGNS: Reviewed. GENERAL: Well-developed in no acute distress. HEENT: Head is normocephalic. Pupils are equal, round. Sclerae anicteric. Mucous membranes of the mouth are moist. Neck supple. No JVD or thyromegaly LUNGS: Respirations even and unlabored. Lungs essentially clear to auscultation bilaterally. HEART: Regular rate and rhythm. S1 and S2 heard. ABDOMEN: Soft. Nondistended. Nontender. EXTREMITIES: Normal range of motion. No clubbing or cyanosis. Peripheral pulses intact. No lower extremity edema NEUROLOGIC: Awake and alert. Oriented x 3. ASSESSMENT: Chest pain acute coronary syndrome ruled out History of alcohol abuse History of pericarditis History of seizure-due to alcohol withdrawal PLAN: An acute coronary event has been ruled out Continued abstinence from alcohol is recommended The patient is stable for discharge home today from a cardiac standpoint We will sign off. Please reconsult if needed. Nurse practitioner note has been reviewed by physician. Signing provider agrees with the documented findings, assessment, and plan of care. Objective - Vital Signs Vital signs: Vital Signs Temp 97.6 F 02/23/23 04:00 Pulse 86 02/23/23 09:13 Resp 18 02/23/23 09:13 BP 131/83 02/23/23 09:13 Pulse Ox 98 02/23/23 09:13 FiO2 Intake & Output 02/22/23 02/23/23 02/23/23 18:59 06:59 18:59 Intake Total 540 110 Balance 540 110 Intake: Oral 540 110 Other: Voiding Method Toilet Urinal # Voids 1 1 # Bowel Movements 1 - Labs CBC & Chem 7: 02/21/23 09:50 02/21/23 09:50
--- NOTE | 2023-02-24 10:35 | P.DS ---
Providers Date of admission: 02/21/23 11:38 Expected date of discharge: 02/23/23 Attending physician: Luis Daniel Ledezma MD Consults: 02/21/23 13:39 Consult Physician Urgent Consulting Provider: Tyshawn Rider Consult Reason/Comments: chest pain, hx of pericarditis Do you want consulting provider notified?: Yes Primary care physician: Stated None Hospital Course: Final diagnosis Chest pain, ruled out ACS History of pericarditis Alcohol withdrawal and early delirium tremens Mild hyponatremia secondary to alcohol intake, improved Continued ongoing nicotine dependence History of seizure disorder possibly alcohol withdrawal related GI prophylaxis DVT prophylaxis Full code Discharge disposition Patient is being discharged in a stable condition with guarded prognosis to [facility]. Patient will follow-up with Dr. Siva Cooney to establish in the outpatient setting upon discharge. Patient is to continue with Librium taper and outpatient follow-up with [facility] on Monday as scheduled. Total time taken is greater than 35 minutes. Hospital course This is a 37-year-old male who was recently admitted with acute alcohol withdrawal and early delirium tremens being closely monitored along with some chest pain. Patient was seen and evaluated by cardiology and ruled out ACS and cleared for discharge with outpatient follow-up. Patient was maintained on CIWA protocol along with Librium taper showing improvements patient reports to feeling improved and reports is ready for inpatient alcohol rehab. Patient has an intake appointment on Monday at [facility]. Patient has been cleared by consultations. Patient will continue on Librium taper on discharge and also resources were provided for patient will establish with a primary care provider in the outpatient setting. Complete alcohol cessation was again stressed and patient reports he does not want to continue drinking. Currently no reports of chest pain, shortness of breath, or palpitations. Patient is afebrile. No reports of nausea or vomiting and patient is tolerating diet. Patient will be discharged home. Guarded prognosis and high risk for readmission given patient's continued alcohol use and noncompliance. Physical exam: Gen: This is a 37-year-old male who is awake, alert and oriented 3, well- developed, well-nourished HEENT: Head is atraumatic, normocephalic. Pupils equal, round. Sclerae is anicteric. NECK: Supple. No JVD. No lymphadenopathy. No thyromegaly. LUNGS: Clear to auscultation. No wheezes or rhonchi. No intercostal retractions. HEART: Regular rate and rhythm. No murmur. ABDOMEN: Soft. Bowel sounds are present. No masses. No tenderness. EXTREMITIES: No pedal edema. No calf tenderness. NEUROLOGICAL: Patient is awake, alert and oriented x3. Cranial nerves 2 through 12 are grossly intact. Please refer to medication reconciliation sheet for a list of medications. The impression and plan of care has been dictated by Yomaira Chavira, Nurse Practitioner as directed. Dr. Eros MD I have performed a history and examination and MDM of this patient, discussed the same with the dictator, and agree with the dictator's assessment and plan as written ,documented as a scribe. Based on total visit time, I have performed more than 50% of the visit. Patient Condition at Discharge: Stable Plan - Discharge Summary Discharge Rx Participant: Yes New Discharge Prescriptions: New chlordiazePOXIDE HCl [Librium] 25 mg PO TID #6 cap Folic Acid 1 mg PO DAILY #30 tablet Multivitamins, Thera [Multivitamin] 1 tab PO DAILY #30 tablet Thiamine [Vitamin B-1] 100 mg PO DAILY #30 tablet Continue Famotidine [Pepcid] 20 mg PO BID Discharge Medication List Famotidine [Pepcid] 20 mg PO BID 02/21/23 [History] Folic Acid 1 mg PO DAILY #30 tablet 02/23/23 [Rx] Multivitamins, Thera [Multivitamin] 1 tab PO DAILY #30 tablet 02/23/23 [Rx] Thiamine [Vitamin B-1] 100 mg PO DAILY #30 tablet 02/23/23 [Rx] chlordiazePOXIDE HCl [Librium] 25 mg PO TID #6 cap 02/23/23 [Rx] Follow up Appointment(s)/Referral(s): Tennille Dunlap MD [STAFF PHYSICIAN] - 1 Week Activity/Diet/Wound Care/Special Instructions: Activity Limited until follow-up Follow-up and establish a primary care provider Continue to avoid all alcohol Continue taking Librium taper as prescribed Follow-up with cardiology outpatient Follow-up with [facility] for intake Discharge/Stand Alone Forms: AA Meetings [place], Who Do I Call?, Community Resources, Outpatient Counseling, Inp Substance Abuse Facilities, Personal Pharmacy Operations Specialist, Area PCPs Discharge Disposition: HOME SELF-CARE
== END 2023-02-23 12:03 | disposition home or self-care (01) | DRG 897 ==
LOC: EC 09:09 → OBSVTOIN 11:38 → 3SCARD 11:38
PROVIDERS: ADMIT Internal Medicine; ATTEND Internal Medicine
DX: F10.231 Alcohol dependence with withdrawal delirium (principal); E87.1 Hypo-osmolality and hyponatremia; R07.89 Other chest pain; I45.10 Unspecified right bundle-branch block; F17.210 Nicotine dependence, cigarettes, uncomplicated; Z91.199 Patient's noncompliance with other medical treatment and regimen due to unspecified reason; Z71.6 Tobacco abuse counseling; Z79.899 Other long term (current) drug therapy; Z88.8 Allergy status to other drugs, medicaments and biological substances
CPT/HCPCS: 36415; 71046; 80053; 83690; 83735; 84484; 85025; 85610; 85652; 85730; 86140; 93005; 93306; 94760; 96361; 96372; 96374; 96375; 96376; 99285